=== PATIENT | female | born 1960 | race African-American/Black ===

== ENCOUNTER 2023-04-11 00:37 | Inpatient (IN) | payer OTHER ==
[2023-04-11] MEDS ORDERED: Ketamine In 0.9 % NaCl 50 MG/5 ML SYRINGE ONE (00:46)
[2023-04-11] MEDS ORDERED: Rocuronium Bromide 10 MG/ML (10ML VIAL) ONE (00:47)
[2023-04-11] MEDS ORDERED: NOREPINEPHRINE 8 MG/250 ML-D5W 250 ML ONE (00:56)
[2023-04-11 01:22] LABS: #Monocytes 2.2 thou/uL (0.11-0.59); #Neutrophils 8.3 thou/uL (1.40-6.50); %Basophils 0.1 % (0.0-1.0); %Lymphocytes 5.7 % (21.0-51.0); %Monocytes 18.6 % (0.0-10.0); %Neutrophils 71.6 % (42.0-75.0); Hematocrit 39.1 % (36.0-47.0); Hemoglobin 11.7 g/dL (12.0-16.0); Mean Corpuscular HGB CONC 29.9 g/dL (32.0-36.0); Mean Corpuscular Hemoglobin 29.1 pg (27.0-31.0); Mean Corpuscular Volume 97.3 fl (78.0-98.0); Red Blood Cell (RBC) Count 4.02 mill/uL (4.20-5.40); White Blood Cell (WBC) Count 11.6 10x3/uL (4.8-10.8)
[2023-04-11 01:27] LABS: ALT (SGPT) 1175 U/L (8-55); AST (SGOT) 2190 U/L (5-34); Albumin 4.3 g/dL (3.4-4.8); Alkaline Phosphatase 85 U/L (40-110); Anion Gap 27 mmol/L (10-20); BUN (Urea Nitrogen) 31 mg/dL (9.8-20.1); Bilirubin, Total 2.6 mg/dL (0.2-1.2); Calc. Creatinine Clearance 0 mL/min (70-130); Carbon Dioxide 13 mmol/L (23-31); Chloride 102 mmol/L (98-107); Estimated GFR 14; Globulin 2.5 g/dL (2.4-3.5); Glucose 64 mg/dL (80-115); Lipase 41 U/L (8-78); Potassium 4.8 mmol/L (3.5-5.1); Protein, Total 6.8 g/dL (5.8-8.1); Sodium 137 mmol/L (136-145)
[2023-04-11] MEDS ORDERED: Cefepime 2 GM VIAL ONE (01:28)
[2023-04-11 01:34] LABS: Troponin I 0.395 ng/mL (< 0.028)
[2023-04-11 01:35] LABS: Analyzer IN Cardio ER; Base Excess (BEa) -16.1 mEq/L (-2.0 to +3.0); CO2 Tension 27.3 mmHg (35.0-45.0); Calcium, Ionized (arterial) 1.11 mmol/L (1.12-1.30); Carboxyhemoglobin (COHb) 0.3 gm% (0.0-3.0); Hematocrit-ABG 38 % (36.0-47.0); Hemoglobin (Hb) 12.8 g/dL (12.0-16.0); O2 Tension (PaO2), arterial 476.7 mmHg (> 80.0); Potassium - ABG Lab 4.52 mmol/L (3.70-5.30)
[2023-04-11] MEDS ORDERED: LevoFLOXacin 750 mg/D5W 150 ml Premix Bag ONE (01:42)
[2023-04-11 01:43] LABS: Bilirubin Negative (Negative); Blood, Urine 3+ (Negative); CAUTI Indications for Culture Dysuria,urgency,freq; Clarity Turbid (Clear); Glucose, Urine (Dipstick) Greater than 1000 mg/dL (Negative); Ketone, Urine Negative (Negative); Leukocyte Negative Leu/uL (Negative); Nitrite Negative (Negative); Protein, Urine (Dipstick) 50 mg/dL (Neg-Trace); RBC/HPF 0-3 HPF (0-3); Specific Gravity, Urine 1.016 (1.002-1.036); Squamous Epithelial 0-3 HPF (0-3); Urobilinogen Normal mg/dL (Less than 2)
[2023-04-11] MEDS ORDERED: Vancomycin 1 GM/200 ML (FROZEN) BAG ONE (01:43)
[2023-04-11 01:48] LABS: Bacteria/HPF Rare-Few HPF (None Seen); Urine Culture Reflex Yes Yes
[2023-04-11 02:06] LABS: Anisocytosis SLIGHT = 6-15 cells HPF (0-5); Burr Cells SLIGHT = 2-5 cells HPF (0-1); CellaVision Operator ID lab.abc; Macrocytosis MODERATE=16-30 cells HPF (0-5); Platelet Adequacy Comment Platelets Decreased; Poikilocytosis SLIGHT = 6-15 cells HPF (0-5); Polychromasia SLIGHT = 2-3 cells HPF (0-2)
[2023-04-11 02:07] LABS: Platelet Count 80 10x3/uL (130-400)
[2023-04-11] MEDS ORDERED: Fentanyl CADD 100 ML IV SCH ×2 (02:15→03:30)
[2023-04-11] MEDS ORDERED: Ipratropium/Albuterol 3 ML NEB NEB PRN (02:52)
[2023-04-11] MEDS ORDERED: Acetaminophen 650 MG Suppository PR PRN (02:52)
[2023-04-11] MEDS ORDERED: Sodium Bicarb 50 MEQ/50 ML Abboject 8.4% SYRINGE ONE ×2 (02:58)
[2023-04-11] MEDS ORDERED: Ventilator Sedation Protocol 1 EACH FS SCH (03:00)
[2023-04-11] MEDS ORDERED: Dextrose 50% Abboject 50 ML SYRINGE SLOW IVP PRN (03:25)
[2023-04-11] MEDS ORDERED: Dextrose 5% in Water 1,000 ML IV PRN (03:25)
[2023-04-11] MEDS ORDERED: Glucagon 1 MG/ML KIT IM PRN (03:25)
[2023-04-11] MEDS ORDERED: HumaLOG 300 UNITS/3 ML VIAL SC PRN (03:25)
[2023-04-11] MEDS ORDERED: Propofol BOLUS 1,000 MG/100 ML VIAL IV PRN (03:30)
[2023-04-11] MEDS ORDERED: DISCONTINUE PREVIOUS NARCOTIC PAIN MEDICATIONS AND BENZODIAZEPINES FS SCH (03:30)
[2023-04-11] MEDS ORDERED: Propofol 1,000 MG/100 ML VIAL IV PRN (03:30)
[2023-04-11] MEDS ORDERED: Morphine 2 MG/ML VIAL SLOW IVP PRN (03:30)
[2023-04-11] MEDS ORDERED: Fentanyl BOLUS 250 ML IVPB PRN (03:30)
[2023-04-11] MEDS ORDERED: Sodium Bicarbonate 150 MEQ in Dextrose 5% in Water 1,000 ML IV SCH (03:30)
[2023-04-11 03:45] LABS: Actual Bicarbonate (HCO3a) 10.4 mEq/L (22-28)
[2023-04-11 04:00] LABS: SARS-CoV-2 NAA Rapid Test Not Detected (NotDetected)
[2023-04-11 04:24] LABS: Lactic Acid 10.5 mmol/L (0.5-2.2)
[2023-04-11] MEDS ORDERED: Vancomycin HCl 750 MG in Sodium Chloride 0.9% 250 ML 250 ML IVPB SCH (04:30)
[2023-04-11] MEDS ORDERED: Vancomycin Dose by Levels Sliding Scale (Wt 71-99) FS SCH (04:45)
[2023-04-11 04:59] LABS: Base Excess (BEa) -13.2 mEq/L (-2.0 to +3.0); CO2 Tension 41.9 mmHg (35.0-45.0); Calcium, Ionized (arterial) 1.04 mmol/L (1.12-1.30); Carboxyhemoglobin (COHb) 0.6 gm% (0.0-3.0); Hematocrit-ABG 38 % (36.0-47.0); Hemoglobin (Hb) 12.9 g/dL (12.0-16.0); Potassium - ABG Lab 3.99 mmol/L (3.70-5.30)
[2023-04-11] MEDS ORDERED: Sodium Bicarb 50 MEQ/50 ML Abboject 8.4% SYRINGE IVP SCH (05:15)
[2023-04-11 05:39] LABS: PTT 61.7 sec (22.9-36.1); Prothrombin Time 103.8 sec (12.0-14.7)
[2023-04-11 05:40] LABS: INR-International Normal Ratio 12.9
[2023-04-11 06:03] LABS: ALT (SGPT) 1389 U/L (8-55); AST (SGOT) 2374 U/L (5-34); Albumin 3.7 g/dL (3.4-4.8); Alkaline Phosphatase 78 U/L (40-110); Anion Gap 30 mmol/L (10-20); BUN (Urea Nitrogen) 31 mg/dL (9.8-20.1); Bilirubin, Total 2.8 mg/dL (0.2-1.2); Calc. Creatinine Clearance 24 mL/min (70-130); Calcium 7.9 mg/dL (7.8-10.44); Carbon Dioxide 17 mmol/L (23-31); Chloride 102 mmol/L (98-107); Estimated GFR 15; Globulin 2.3 g/dL (2.4-3.5); Glucose 151 mg/dL (80-115); Potassium 4.3 mmol/L (3.5-5.1); Sodium 145 mmol/L (136-145)
[2023-04-11 06:04] LABS: Delete Auto Diff?? YES; Manual Diff?? YES; Mean Corpuscular Hemoglobin 29.3 pg (27.0-31.0); Mean Corpuscular Volume 97.6 fl (78.0-98.0); Platelet Count 80 10x3/uL (130-400); RBC Distribution Width 19.9 % (11.5-14.5)
[2023-04-11 06:25] LABS: Anisocytosis SLIGHT = 6-15 cells HPF (0-5); Band 6 % (5-11); Burr Cells MODERATE= 6-15 cells HPF (0-1); CellaVision Operator ID lab.abc; Lymphocytes 5 % (21-51); Macrocytosis SLIGHT = 6-15 cells HPF (0-5); Monocytes 16 % (0-10); Neutrophil 73 % (42-75); Nucleated RBC (Manual Ct) 3 % (0); Platelet Adequacy Comment Platelets Decreased; Poikilocytosis MODERATE=16-30 cells HPF (0-5); Polychromasia SLIGHT = 2-3 cells HPF (0-2); Smudge Cells 5.9 %; Total Cell Count 119
[2023-04-11] MEDS ORDERED: HUMAN PROTHROMBIN COMPLX IV SCH (06:30)
[2023-04-11] MEDS ORDERED: ADMIXTURE FEE IV SCH (06:30)
[2023-04-11] MEDS ORDERED: Phytonadione 10 MG in Sodium Chloride 0.9% 50 ML IVPB SCH (07:00)
[2023-04-11 07:33] LABS: Actual Bicarbonate (HCO3a) 18.9 mEq/L (22-28); Base Excess (BEa) -6.8 mEq/L (-2.0 to +3.0); CO2 Tension 38.4 mmHg (35.0-45.0); Calcium, Ionized (arterial) 0.98 mmol/L (1.12-1.30); Carboxyhemoglobin (COHb) 0.7 gm% (0.0-3.0); Hematocrit-ABG 37 % (36.0-47.0); Hemoglobin (Hb) 12.7 g/dL (12.0-16.0); O2 Tension (PaO2), arterial 503.3 mmHg (> 80.0); Potassium - ABG Lab 4.16 mmol/L (3.70-5.30); pH, Arterial 7.309 (7.35-7.45)
[2023-04-11 07:35] LABS: Puncture Site Arterial Line
[2023-04-11] MEDS ORDERED: Vancomycin (BATCH) 1.5 GM in Premix 1 BAG IVPB SCH (09:00)
[2023-04-11] MEDS ORDERED: Octreotide Acetate 1,250 MCG in Sodium Chloride 0.9% 250 ML 250 ML IVPB SCH (09:15)
[2023-04-11] MEDS: Famotidine/PF 20 mg/2ml Vial SLOW IVP SCH (10:05)
[2023-04-11] MEDS: NOREPINEPHRINE 8 MG/250 ML-D5W 250 ML IVPB PRN (12:04)
[2023-04-11] MEDS: HumaLOG 300 UNITS/3 ML VIAL SC PRN ×3 (13:04→21:32)
[2023-04-11 13:33] LABS: Hematocrit 36.8 % (36.0-47.0); Hemoglobin 11.5 g/dL (12.0-16.0); Mean Corpuscular HGB CONC 31.3 g/dL (32.0-36.0); Mean Corpuscular Hemoglobin 30.4 pg (27.0-31.0); Mean Corpuscular Volume 97.4 fl (78.0-98.0); Red Blood Cell (RBC) Count 3.78 mill/uL (4.20-5.40); White Blood Cell (WBC) Count 17.3 10x3/uL (4.8-10.8)
[2023-04-11 13:34] LABS: Mean Platelet Volume 11.2 fL (7.4-10.4); RBC Distribution Width 20.1 % (11.5-14.5)
[2023-04-11 13:35] LABS: Platelet Count 86 10x3/uL (130-400)
[2023-04-11] MEDS ORDERED: Cefepime 1 GM in Sodium Chloride 0.9% 100 ML IVPB SCH (14:00)
[2023-04-11] MEDS: Sodium Bicarbonate 150 MEQ in Dextrose 5% in Water 1,000 ML IV SCH (19:29)
[2023-04-11] MEDS ORDERED: methylPREDNISolone Sod Succ 40 MG VIAL IVP SCH (21:00)
[2023-04-12] MEDS: Cefepime 1 GM in Sodium Chloride 0.9% 100 ML IVPB SCH (02:06)
[2023-04-12] MEDS: NOREPINEPHRINE 8 MG/250 ML-D5W 250 ML IVPB PRN (02:06)
[2023-04-12 04:54] LABS: %Basophils 0.1 % (0.0-1.0); Hemoglobin 11.3 g/dL (12.0-16.0)
[2023-04-12 05:16] LABS: PTT 53.8 sec (22.9-36.1); Prothrombin Time 88.4 sec (12.0-14.7)
[2023-04-12 05:17] LABS: ALT (SGPT) 2827 U/L (8-55); Albumin 3.6 g/dL (3.4-4.8); Alkaline Phosphatase 100 U/L (40-110); Bilirubin, Direct 2.5 mg/dL (0.1-0.3); Bilirubin, Total 3.9 mg/dL (0.2-1.2)
[2023-04-12 05:18] LABS: ALT (SGPT) 2863 U/L (8-55); Albumin 3.5 g/dL (3.4-4.8); Alkaline Phosphatase 99 U/L (40-110); Anion Gap 23 mmol/L (10-20); BUN (Urea Nitrogen) 43 mg/dL (9.8-20.1); Calc. Creatinine Clearance 19 mL/min (70-130); Calcium 8.7 mg/dL (7.8-10.44); Carbon Dioxide 23 mmol/L (23-31); Chloride 98 mmol/L (98-107); Estimated GFR 11; Globulin 2.4 g/dL (2.4-3.5); Glucose 221 mg/dL (80-115); Protein, Total 5.9 g/dL (5.8-8.1); Sodium 140 mmol/L (136-145)
[2023-04-12 05:21] LABS: AST (SGOT) Greater than 3500 U/L (5-34)
[2023-04-12 05:21] LABS: AST (SGOT) Greater than 3500 U/L (5-34)
[2023-04-12] MEDS: Furosemide 40 MG/4 ML VIAL SLOW IVP SCH ×2 (05:34→15:17)
[2023-04-12] MEDS: HumaLOG 300 UNITS/3 ML VIAL SC PRN ×3 (05:35→16:18)
[2023-04-12 05:38] LABS: HBCM Index 0.07 S/CO (0-0.79); HBSAg Index 0.18 S/CO (0-0.99); Hep A IgM AB Non-Reactive S/CO (NonReactive); Hep B Surf Ag Non-Reactive S/CO (NonReactive); Hep C IgG Ab Non-Reactive S/CO (NonReactive); Hep C Index 0.07 S/CO (0-0.79); Hepatitis B Core IgM Abs Non-Reactive S/CO (NonReactive)
[2023-04-12 05:55] LABS: INR-International Normal Ratio 10.6
[2023-04-12 07:41] LABS: Hep B Core Total Ab Non-Reactive (NonReactive); Hep B Core Total Index 0.06 S/CO (0-0.79)
[2023-04-12 07:42] LABS: HBSAB Concentration Less than 8.00 mIU/mL; Hep B Surf AB Non-Reactive (NonReactive)
[2023-04-12] MEDS ORDERED: Heparin 10,000 UNITS/ 10 ML VIAL ONE (08:16)
[2023-04-12] MEDS: Famotidine/PF 20 mg/2ml Vial SLOW IVP SCH (09:42)
[2023-04-12 12:48] LABS: Hematocrit 36.5 % (36.0-47.0)
[2023-04-12 12:52] LABS: Red Blood Cell (RBC) Count 3.87 mill/uL (4.20-5.40); White Blood Cell (WBC) Count 17.8 10x3/uL (4.8-10.8)
[2023-04-12 12:53] LABS: Mean Corpuscular Hemoglobin 29.2 pg (27.0-31.0); RBC Distribution Width 20.1 % (11.5-14.5)
[2023-04-12 12:54] LABS: %Lymphocytes 3.5 % (21.0-51.0); %Neutrophils 79.3 % (42.0-75.0); Platelet Count 111 10x3/uL (130-400)
[2023-04-12 12:55] LABS: #Monocytes 2.5 thou/uL (0.11-0.59); #Neutrophils 14.1 thou/uL (1.40-6.50); %Monocytes 14.1 % (0.0-10.0)
[2023-04-12 12:56] LABS: Mean Corpuscular Volume 94.3 fl (78.0-98.0)
[2023-04-12] MEDS: Sodium Bicarbonate 150 MEQ in Dextrose 5% in Water 1,000 ML IV SCH (12:56)
[2023-04-12 16:44] LABS: Actual Bicarbonate (HCO3a) 27.2 mEq/L (22-28); Base Excess (BEa) 7.7 mEq/L (-2.0 to +3.0); Calcium, Ionized (arterial) 1.02 mmol/L (1.12-1.30); Carboxyhemoglobin (COHb) 0.4 gm% (0.0-3.0); Hematocrit-ABG 33 % (36.0-47.0); Hemoglobin (Hb) 11.2 g/dL (12.0-16.0); O2 Tension (PaO2), arterial 98.4 mmHg (> 80.0)
[2023-04-12 16:48] LABS: pH, Arterial 7.685 (7.35-7.45)
[2023-04-12 16:49] LABS: ALV-art Gradient 157.675 mmHg (0-20); CO2 Tension 23.3 mmHg (35.0-45.0); Puncture Site ALINE
[2023-04-12] MEDS ORDERED: Insulin Glargine 30 UNITS/0.3 ML VIAL SC SCH (17:00)
[2023-04-13] MEDS: Cefepime 1 GM in Sodium Chloride 0.9% 100 ML IVPB SCH (02:46)
[2023-04-13 04:27] LABS: INR-International Normal Ratio 4.5; PTT 40.5 sec (22.9-36.1); Prothrombin Time 44.9 sec (12.0-14.7)
[2023-04-13 04:50] LABS: ALT (SGPT) 1994 U/L (8-55); AST (SGOT) 1847 U/L (5-34); Albumin 3.2 g/dL (3.4-4.8); Alkaline Phosphatase 94 U/L (40-110); Anion Gap 20 mmol/L (10-20); BUN (Urea Nitrogen) 42 mg/dL (9.8-20.1); Bilirubin, Total 5.2 mg/dL (0.2-1.2); Calc. Creatinine Clearance 23 mL/min (70-130); Calcium 8.5 mg/dL (7.8-10.44); Carbon Dioxide 26 mmol/L (23-31); Chloride 101 mmol/L (98-107); Estimated GFR 14; Globulin 2.4 g/dL (2.4-3.5); Glucose 149 mg/dL (80-115); Potassium 2.7 mmol/L (3.5-5.1); Protein, Total 5.6 g/dL (5.8-8.1); Sodium 144 mmol/L (136-145)
[2023-04-13 04:52] LABS: Hematocrit 30.8 % (36.0-47.0); Hemoglobin 10.2 g/dL (12.0-16.0); Mean Corpuscular HGB CONC 33.1 g/dL (32.0-36.0); RBC Distribution Width 19.6 % (11.5-14.5); Red Blood Cell (RBC) Count 3.52 mill/uL (4.20-5.40); White Blood Cell (WBC) Count 9.8 10x3/uL (4.8-10.8)
[2023-04-13 04:55] LABS: Manual Diff?? YES; Platelet Count 85 10x3/uL (130-400)
[2023-04-13 04:56] LABS: Delete Auto Diff?? YES
[2023-04-13] MEDS: Furosemide 40 MG/4 ML VIAL SLOW IVP SCH (05:06)
[2023-04-13] MEDS: HumaLOG 300 UNITS/3 ML VIAL SC PRN ×2 (05:06→22:05)
[2023-04-13 05:22] LABS: Anisocytosis SLIGHT = 6-15 cells HPF (0-5); Band 1 % (5-11); Burr Cells SLIGHT = 2-5 cells HPF (0-1); CellaVision Operator ID lab.abc; Eosinophils 1 % (0-10); Hypochromia SLIGHT = 6-15 cells HPF (0-5); Large Platelets 3.9 % (0-5); Lymphocytes 5 % (21-51); Monocytes 11 % (0-10); Neutrophil 82 % (42-75); Platelet Adequacy Comment Platelets Decreased; Poikilocytosis MODERATE=16-30 cells HPF (0-5); Smudge Cells 18.6 %; Total Cell Count 102
[2023-04-13 05:59] LABS: Mean Corpuscular Volume 87.5 fl (78.0-98.0)
[2023-04-13] MEDS: Famotidine/PF 20 mg/2ml Vial SLOW IVP SCH (10:14)
[2023-04-13] MEDS: Insulin Glargine 30 UNITS/0.3 ML VIAL SC SCH ×2 (10:14→10:41)
[2023-04-13] MEDS: Potassium Chloride 20 MEQ in Premix 1 BAG IVPB SCH ×2 (10:17→11:31)
[2023-04-13] MEDS ORDERED: Dexmedetomidine 400 MCG, Admixture Fee 1 EACH in Sodium Chloride 0.9% 96 ML IVPB SCH (11:00)
[2023-04-13] MEDS ORDERED: Heparin 10,000 UNITS/ 10 ML VIAL ONE (12:48)
[2023-04-13] MEDS: Lorazepam 2 MG/ML VIAL SLOW IVP PRN ×2 (14:09→18:12)
[2023-04-13] MEDS ORDERED: Diazepam 10 MG/2 ML SYRINGE IVP PRN (17:40)
[2023-04-14] MEDS: Cefepime 1 GM in Sodium Chloride 0.9% 100 ML IVPB SCH (02:53)
[2023-04-14 05:01] LABS: PTT 36.1 sec (22.9-36.1); Prothrombin Time 23.6 sec (12.0-14.7)
[2023-04-14 05:04] LABS: ALT (SGPT) 1444 U/L (8-55); AST (SGOT) 889 U/L (5-34); Albumin 3.4 g/dL (3.4-4.8); Alkaline Phosphatase 102 U/L (40-110); Anion Gap 20 mmol/L (10-20); BUN (Urea Nitrogen) 34 mg/dL (9.8-20.1); Bilirubin, Direct 4.5 mg/dL (0.1-0.3); Bilirubin, Total 6.7 mg/dL (0.2-1.2); Calc. Creatinine Clearance 29 mL/min (70-130); Calcium 8.6 mg/dL (7.8-10.44); Carbon Dioxide 22 mmol/L (23-31); Chloride 101 mmol/L (98-107); Estimated GFR 19; Globulin 2.4 g/dL (2.4-3.5); Glucose 197 mg/dL (80-115); Potassium 3.2 mmol/L (3.5-5.1); Protein, Total 5.8 g/dL (5.8-8.1); Sodium 140 mmol/L (136-145)
[2023-04-14] MEDS: HumaLOG 300 UNITS/3 ML VIAL SC PRN ×4 (06:00→21:34)
[2023-04-14 06:28] LABS: #Monocytes 1.4 thou/uL (0.11-0.59); #Neutrophils 7.8 thou/uL (1.40-6.50); %Basophils 0.1 % (0.0-1.0); %Eosinophils 0.1 % (0.0-10.0); %Lymphocytes 5.5 % (21.0-51.0); %Monocytes 13.9 % (0.0-10.0); %Neutrophils 77.9 % (42.0-75.0); Hematocrit 30.6 % (36.0-47.0); Hemoglobin 9.9 g/dL (12.0-16.0); Mean Corpuscular HGB CONC 32.4 g/dL (32.0-36.0); Mean Corpuscular Hemoglobin 28.9 pg (27.0-31.0); Mean Corpuscular Volume 89.5 fl (78.0-98.0); RBC Distribution Width 20.3 % (11.5-14.5); Red Blood Cell (RBC) Count 3.42 mill/uL (4.20-5.40)
[2023-04-14 06:48] LABS: Platelet Count 72 10x3/uL (130-400)
[2023-04-14 08:10] LABS: Actual Bicarbonate (HCO3a) 26.7 mEq/L (22-28); Base Excess (BEa) 6.9 mEq/L (-2.0 to +3.0); Calcium, Ionized (arterial) 1.05 mmol/L (1.12-1.30); Carboxyhemoglobin (COHb) 0.4 gm% (0.0-3.0); Hematocrit-ABG 31 % (36.0-47.0); Hemoglobin (Hb) 10.7 g/dL (12.0-16.0); Potassium - ABG Lab 2.82 mmol/L (3.70-5.30)
[2023-04-14] MEDS: Insulin Glargine 30 UNITS/0.3 ML VIAL SC SCH (08:35)
[2023-04-14] MEDS: Famotidine/PF 20 mg/2ml Vial SLOW IVP SCH (08:35)
[2023-04-14] MEDS ORDERED: Heparin 10,000 UNITS/ 10 ML VIAL ONE (08:42)
[2023-04-14 10:53] LABS: CO2 Tension 23.6 mmHg (35.0-45.0); Puncture Site Arterial Line; pH, Arterial 7.671 (7.35-7.45)
[2023-04-15] MEDS: Cefepime 1 GM in Sodium Chloride 0.9% 100 ML IVPB SCH (02:42)
[2023-04-15 04:03] LABS: INR-International Normal Ratio 1.6; PTT 37.8 sec (22.9-36.1); Prothrombin Time 19.2 sec (12.0-14.7)
[2023-04-15 04:09] LABS: #Monocytes 2.2 thou/uL (0.11-0.59); #Neutrophils 10.1 thou/uL (1.40-6.50); %Basophils 0.2 % (0.0-1.0); %Eosinophils 0.2 % (0.0-10.0); %Lymphocytes 4.4 % (21.0-51.0); %Monocytes 16.6 % (0.0-10.0); %Neutrophils 76.8 % (42.0-75.0); Hematocrit 32.7 % (36.0-47.0); Hemoglobin 10.3 g/dL (12.0-16.0); Mean Corpuscular HGB CONC 31.5 g/dL (32.0-36.0); Mean Corpuscular Hemoglobin 28.8 pg (27.0-31.0); Mean Corpuscular Volume 91.3 fl (78.0-98.0); Platelet Count 93 10x3/uL (130-400); RBC Distribution Width 20.9 % (11.5-14.5); Red Blood Cell (RBC) Count 3.58 mill/uL (4.20-5.40); White Blood Cell (WBC) Count 13.1 10x3/uL (4.8-10.8)
[2023-04-15 04:14] LABS: ALT (SGPT) 1025 U/L (8-55); AST (SGOT) 395 U/L (5-34); Albumin 3.5 g/dL (3.4-4.8); Alkaline Phosphatase 115 U/L (40-110); Bilirubin, Direct 5.4 mg/dL (0.1-0.3); Protein, Total 6.2 g/dL (5.8-8.1)
[2023-04-15 04:15] LABS: ALT (SGPT) 1026 U/L (8-55); AST (SGOT) 400 U/L (5-34); Albumin 3.7 g/dL (3.4-4.8); Alkaline Phosphatase 115 U/L (40-110); Anion Gap 16 mmol/L (10-20); BUN (Urea Nitrogen) 26 mg/dL (9.8-20.1); Bilirubin, Total 7.1 mg/dL (0.2-1.2); Calc. Creatinine Clearance 40 mL/min (70-130); Calcium 8.9 mg/dL (7.8-10.44); Carbon Dioxide 27 mmol/L (23-31); Chloride 100 mmol/L (98-107); Estimated GFR 30; Globulin 2.5 g/dL (2.4-3.5); Glucose 245 mg/dL (80-115); Potassium 3.1 mmol/L (3.5-5.1); Protein, Total 6.2 g/dL (5.8-8.1); Sodium 140 mmol/L (136-145)
[2023-04-15] MEDS: HumaLOG 300 UNITS/3 ML VIAL SC PRN ×3 (06:21→16:38)
[2023-04-15 06:39] LABS: Actual Bicarbonate (HCO3a) 27.3 mEq/L (22-28); Base Excess (BEa) 3.1 mEq/L (-2.0 to +3.0); CO2 Tension 40.3 mmHg (35.0-45.0); Calcium, Ionized (arterial) 1.13 mmol/L (1.12-1.30); Carboxyhemoglobin (COHb) 0.6 gm% (0.0-3.0); Hematocrit-ABG 33 % (36.0-47.0); Hemoglobin (Hb) 11.3 g/dL (12.0-16.0); Potassium - ABG Lab 3.12 mmol/L (3.70-5.30); pH, Arterial 7.449 (7.35-7.45)
[2023-04-15 06:40] LABS: Puncture Site Right Radial
[2023-04-15 06:41] LABS: ALV-art Gradient 83.825 mmHg (0-20)
[2023-04-15] MEDS ORDERED: Potassium Chloride 20 MEQ in Premix 1 BAG IVPB SCH (06:45)
[2023-04-15] MEDS: Famotidine/PF 20 mg/2ml Vial SLOW IVP SCH (07:46)
[2023-04-15] MEDS: Insulin Glargine 30 UNITS/0.3 ML VIAL SC SCH (07:46)
[2023-04-15] MEDS: Furosemide 40 MG/4 ML VIAL SLOW IVP SCH (14:02)
[2023-04-15] MEDS: Lorazepam 2 MG/ML VIAL SLOW IVP PRN (22:56)
[2023-04-15] MEDS: Insulin NPH Human Isophane 100 UNITS/ML (10 ML VIAL) SC SCH (22:59)
[2023-04-16] MEDS: Cefepime 1 GM in Sodium Chloride 0.9% 100 ML IVPB SCH (01:20)
[2023-04-16 04:30] LABS: ALT (SGPT) 664 U/L (8-55); AST (SGOT) 182 U/L (5-34); Albumin 3.6 g/dL (3.4-4.8); Alkaline Phosphatase 124 U/L (40-110); Anion Gap 12 mmol/L (10-20); BUN (Urea Nitrogen) 35 mg/dL (9.8-20.1); Bilirubin, Total 6.2 mg/dL (0.2-1.2); Calc. Creatinine Clearance 35 mL/min (70-130); Calcium 9.1 mg/dL (7.8-10.44); Carbon Dioxide 29 mmol/L (23-31); Chloride 103 mmol/L (98-107); Estimated GFR 27; Globulin 2.6 g/dL (2.4-3.5); Glucose 213 mg/dL (80-115); Potassium 3.3 mmol/L (3.5-5.1); Protein, Total 6.2 g/dL (5.8-8.1); Sodium 141 mmol/L (136-145)
[2023-04-16 04:45] LABS: #Monocytes 2.4 thou/uL (0.11-0.59); #Neutrophils 11.3 thou/uL (1.40-6.50); %Basophils 0.2 % (0.0-1.0); %Eosinophils 0.1 % (0.0-10.0); %Lymphocytes 4.7 % (21.0-51.0); %Neutrophils 75.4 % (42.0-75.0); Hematocrit 33.3 % (36.0-47.0); Hemoglobin 10.3 g/dL (12.0-16.0); Mean Corpuscular HGB CONC 30.9 g/dL (32.0-36.0); Mean Corpuscular Hemoglobin 28.6 pg (27.0-31.0); Mean Corpuscular Volume 92.5 fl (78.0-98.0); RBC Distribution Width 21.2 % (11.5-14.5)
[2023-04-16 04:46] LABS: Platelet Count 98 10x3/uL (130-400)
[2023-04-16] MEDS: Furosemide 40 MG/4 ML VIAL SLOW IVP SCH ×2 (05:24→15:05)
[2023-04-16] MEDS: HumaLOG 300 UNITS/3 ML VIAL SC PRN (05:25)
[2023-04-16] MEDS ORDERED: Potassium Chloride 20 MEQ in Premix 1 BAG IVPB SCH (05:30)
[2023-04-16] MEDS: Famotidine/PF 20 mg/2ml Vial SLOW IVP SCH (07:47)
[2023-04-16] MEDS: Insulin NPH Human Isophane 100 UNITS/ML (10 ML VIAL) SC SCH ×3 (07:51→20:24)
[2023-04-16] MEDS: DOBUTamine 500 mg/250 ml 250 ML IVPB SCH (09:30)
[2023-04-16 09:44] LABS: Actual Bicarbonate (HCO3a) 26.7 mEq/L (22-28); Base Excess (BEa) 2.5 mEq/L (-2.0 to +3.0); CO2 Tension 39.9 mmHg (35.0-45.0); Calcium, Ionized (arterial) 1.16 mmol/L (1.12-1.30); Carboxyhemoglobin (COHb) 0.8 gm% (0.0-3.0); Hematocrit-ABG 34 % (36.0-47.0); Hemoglobin (Hb) 11.6 g/dL (12.0-16.0); O2 Tension (PaO2), arterial 71.3 mmHg (> 80.0); Potassium - ABG Lab 3.42 mmol/L (3.70-5.30); pH, Arterial 7.444 (7.35-7.45)
[2023-04-16 09:46] LABS: Puncture Site Right Radial
[2023-04-16 09:47] LABS: ALV-art Gradient 164.025 mmHg (0-20)
[2023-04-16] MEDS: Albumin 25% 25 GM/100 ML BOT IVPB SCH ×2 (10:56→17:23)
[2023-04-17] MEDS: Albumin 25% 25 GM/100 ML BOT IVPB SCH ×2 (00:20→05:26)
[2023-04-17] MEDS: Cefepime 1 GM in Sodium Chloride 0.9% 100 ML IVPB SCH (02:07)
[2023-04-17] MEDS: Furosemide 40 MG/4 ML VIAL SLOW IVP SCH ×2 (05:26→14:06)
[2023-04-17 05:48] LABS: ALT (SGPT) 415 U/L (8-55); AST (SGOT) 95 U/L (5-34); Albumin 4.2 g/dL (3.4-4.8); Alkaline Phosphatase 112 U/L (40-110); Anion Gap 18 mmol/L (10-20); BUN (Urea Nitrogen) 36 mg/dL (9.8-20.1); Bilirubin, Total 7.6 mg/dL (0.2-1.2); Calc. Creatinine Clearance 37 mL/min (70-130); Calcium 9.2 mg/dL (7.8-10.44); Carbon Dioxide 25 mmol/L (23-31); Chloride 106 mmol/L (98-107); Estimated GFR 29; Globulin 2.5 g/dL (2.4-3.5); Glucose 148 mg/dL (80-115); Potassium 3.2 mmol/L (3.5-5.1); Protein, Total 6.7 g/dL (5.8-8.1); Sodium 146 mmol/L (136-145)
[2023-04-17 05:50] LABS: #Monocytes 2.6 thou/uL (0.11-0.59); #Neutrophils 10.9 thou/uL (1.40-6.50); %Basophils 0.3 % (0.0-1.0); %Eosinophils 0.2 % (0.0-10.0); %Lymphocytes 4.7 % (21.0-51.0); %Monocytes 17.6 % (0.0-10.0); %Neutrophils 73.4 % (42.0-75.0); Hematocrit 30.6 % (36.0-47.0); Hemoglobin 9.4 g/dL (12.0-16.0); Mean Corpuscular HGB CONC 30.7 g/dL (32.0-36.0); Mean Corpuscular Hemoglobin 28.6 pg (27.0-31.0); Platelet Count 94 10x3/uL (130-400); RBC Distribution Width 21.4 % (11.5-14.5); Red Blood Cell (RBC) Count 3.29 mill/uL (4.20-5.40); White Blood Cell (WBC) Count 14.9 10x3/uL (4.8-10.8)
[2023-04-17 06:40] LABS: Actual Bicarbonate (HCO3a) 26.2 mEq/L (22-28); Base Excess (BEa) 1.9 mEq/L (-2.0 to +3.0); CO2 Tension 39.8 mmHg (35.0-45.0); Calcium, Ionized (arterial) 1.15 mmol/L (1.12-1.30); Hematocrit-ABG 31 % (36.0-47.0); Hemoglobin (Hb) 10.7 g/dL (12.0-16.0); O2 Tension (PaO2), arterial 98.1 mmHg (> 80.0); Potassium - ABG Lab 3.09 mmol/L (3.70-5.30); pH, Arterial 7.436 (7.35-7.45)
[2023-04-17 06:41] LABS: Puncture Site Right Radial
[2023-04-17] MEDS: Famotidine/PF 20 mg/2ml Vial SLOW IVP SCH (08:29)
[2023-04-17] MEDS: Insulin NPH Human Isophane 100 UNITS/ML (10 ML VIAL) SC SCH ×2 (08:30→20:30)
[2023-04-17] MEDS ORDERED: Potassium Chloride 20 MEQ in Premix 1 BAG IVPB SCH (09:00)
[2023-04-17] MEDS ORDERED: Dextrose 5% in Water 1,000 ML IV PRN (11:01)
[2023-04-17] MEDS: Dextrose 5% in Water 1,000 ML IV SCH ×2 (12:09→21:15)
[2023-04-18] MEDS: Cefepime 1 GM in Sodium Chloride 0.9% 100 ML IVPB SCH (02:23)
[2023-04-18 04:50] LABS: ALT (SGPT) 309 U/L (8-55); AST (SGOT) 60 U/L (5-34); Alkaline Phosphatase 100 U/L (40-110); Anion Gap 15 mmol/L (10-20); BUN (Urea Nitrogen) 32 mg/dL (9.8-20.1); Bilirubin, Total 7.7 mg/dL (0.2-1.2); Calc. Creatinine Clearance 42 mL/min (70-130); Calcium 8.9 mg/dL (7.8-10.44); Carbon Dioxide 27 mmol/L (23-31); Chloride 104 mmol/L (98-107); Estimated GFR 34; Globulin 2.6 g/dL (2.4-3.5); Glucose 118 mg/dL (80-115); Potassium 2.9 mmol/L (3.5-5.1); Protein, Total 6.6 g/dL (5.8-8.1); Sodium 143 mmol/L (136-145)
[2023-04-18 05:06] LABS: #Monocytes 1.9 thou/uL (0.11-0.59); #Neutrophils 8.7 thou/uL (1.40-6.50); %Basophils 0.2 % (0.0-1.0); %Eosinophils 0.2 % (0.0-10.0); %Monocytes 15.3 % (0.0-10.0); %Neutrophils 72.3 % (42.0-75.0); Mean Corpuscular HGB CONC 31.3 g/dL (32.0-36.0); Mean Corpuscular Hemoglobin 28.7 pg (27.0-31.0); RBC Distribution Width 21.8 % (11.5-14.5); Red Blood Cell (RBC) Count 3.48 mill/uL (4.20-5.40); White Blood Cell (WBC) Count 12.1 10x3/uL (4.8-10.8)
[2023-04-18 05:08] LABS: Platelet Count 87 10x3/uL (130-400)
[2023-04-18] MEDS: DOBUTamine 500 mg/250 ml 250 ML IVPB SCH (05:08)
[2023-04-18] MEDS: Furosemide 40 MG/4 ML VIAL SLOW IVP SCH ×2 (05:08→13:19)
[2023-04-18] MEDS ORDERED: Potassium Chloride 40 MEQ in Premix 1 BAG IVPB SCH (05:30)
[2023-04-18] MEDS: Famotidine/PF 20 mg/2ml Vial SLOW IVP SCH (08:03)
[2023-04-18] MEDS: Dextrose 5% in Water 1,000 ML IV SCH ×2 (08:08→21:00)
[2023-04-18] MEDS: Insulin NPH Human Isophane 100 UNITS/ML (10 ML VIAL) SC SCH ×2 (08:26→20:57)
[2023-04-18] MEDS ORDERED: Insulin NPH Human Isophane 100 UNITS/ML (10 ML VIAL) SC SCH (08:45)
[2023-04-18 10:55] LABS: Magnesium 2.1 mg/dL (1.6-2.6)
[2023-04-18 13:03] LABS: Potassium 3.8 mmol/L (3.5-5.1)
[2023-04-18] MEDS: HumaLOG 300 UNITS/3 ML VIAL SC PRN (17:06)
[2023-04-18] MEDS: Heparin 5,000 UNITS/ML VIAL SC SCH (20:57)
[2023-04-19 04:43] LABS: Hemoglobin 11.5 g/dL (12.0-16.0); Mean Corpuscular HGB CONC 31.1 g/dL (32.0-36.0); Mean Corpuscular Hemoglobin 28.5 pg (27.0-31.0); Mean Corpuscular Volume 91.6 fl (78.0-98.0); Platelet Count 104 10x3/uL (130-400); RBC Distribution Width 22.3 % (11.5-14.5); Red Blood Cell (RBC) Count 4.04 mill/uL (4.20-5.40); White Blood Cell (WBC) Count 13.3 10x3/uL (4.8-10.8)
[2023-04-19 04:45] LABS: Delete Auto Diff?? YES; Manual Diff?? YES
[2023-04-19 04:47] LABS: ALT (SGPT) 261 U/L (8-55); AST (SGOT) 53 U/L (5-34); Alkaline Phosphatase 106 U/L (40-110); Anion Gap 18 mmol/L (10-20); BUN (Urea Nitrogen) 27 mg/dL (9.8-20.1); Bilirubin, Total 7.2 mg/dL (0.2-1.2); Calc. Creatinine Clearance 52 mL/min (70-130); Carbon Dioxide 23 mmol/L (23-31); Chloride 100 mmol/L (98-107); Estimated GFR 43; Glucose 168 mg/dL (80-115); Potassium 4.4 mmol/L (3.5-5.1); Sodium 137 mmol/L (136-145)
[2023-04-19 05:10] LABS: Anisocytosis MODERATE=16-30 cells HPF (0-5); Burr Cells MODERATE= 6-15 cells HPF (0-1); CellaVision Operator ID lab.sh2; Eosinophils 2 % (0-10); Hypochromia SLIGHT = 6-15 cells HPF (0-5); Lymphocytes 8 % (21-51); Macrocytosis MODERATE=16-30 cells HPF (0-5); Monocytes 14 % (0-10); Neutrophil 76 % (42-75); Ovalocytes SLIGHT = 2-5 cells HPF (0-1); Platelet Adequacy Comment Platelets Decreased; Poikilocytosis SLIGHT = 6-15 cells HPF (0-5); Polychromasia SLIGHT = 2-3 cells HPF (0-2); Smudge Cells 22.2 %; Total Cell Count 99
[2023-04-19] MEDS: Furosemide 40 MG/4 ML VIAL SLOW IVP SCH ×2 (06:22→16:00)
[2023-04-19] MEDS: Heparin 5,000 UNITS/ML VIAL SC SCH ×3 (09:33→22:05)
[2023-04-19] MEDS: Famotidine/PF 20 mg/2ml Vial SLOW IVP SCH (09:34)
[2023-04-19] MEDS: HumaLOG 300 UNITS/3 ML VIAL SC PRN (09:34)
[2023-04-19] MEDS: Dextrose 5% in Water 1,000 ML IV SCH ×2 (10:15→20:12)
[2023-04-19] MEDS: Insulin NPH Human Isophane 100 UNITS/ML (10 ML VIAL) SC SCH ×2 (10:17→22:06)
[2023-04-19 14:44] LABS: Actual Bicarbonate (HCO3a) 14.8 mEq/L (22-28); O2 Tension (PaO2), arterial 36.8 mmHg (> 80.0); pH, Arterial 7.167 (7.35-7.45)
[2023-04-19] MEDS ORDERED: Cefepime 1 GM in Sodium Chloride 0.9% 100 ML IVPB SCH (21:00)
[2023-04-19] MEDS: cefTRIAXone\\ROCEPHIN 2 GM in Sodium Chloride 0.9% 100 ML IVPB SCH (23:13)
[2023-04-20] MEDS: DOBUTamine 500 mg/250 ml 250 ML IVPB SCH (02:34)
[2023-04-20 04:49] LABS: ALT (SGPT) 200 U/L (8-55); AST (SGOT) 37 U/L (5-34); Albumin 4.1 g/dL (3.4-4.8); Alkaline Phosphatase 101 U/L (40-110); Anion Gap 14 mmol/L (10-20); BUN (Urea Nitrogen) 23 mg/dL (9.8-20.1); Bilirubin, Total 5.9 mg/dL (0.2-1.2); Calc. Creatinine Clearance 58 mL/min (70-130); Calcium 9.3 mg/dL (7.8-10.44); Carbon Dioxide 24 mmol/L (23-31); Chloride 96 mmol/L (98-107); Estimated GFR 46; Globulin 2.6 g/dL (2.4-3.5); Glucose 212 mg/dL (80-115); Potassium 3.1 mmol/L (3.5-5.1); Protein, Total 6.7 g/dL (5.8-8.1); Sodium 131 mmol/L (136-145)
[2023-04-20 05:02] LABS: Hematocrit 34.8 % (36.0-47.0); Mean Corpuscular HGB CONC 31.6 g/dL (32.0-36.0); Mean Corpuscular Hemoglobin 28.4 pg (27.0-31.0); Mean Corpuscular Volume 89.7 fl (78.0-98.0); Platelet Count 109 10x3/uL (130-400); RBC Distribution Width 22.1 % (11.5-14.5); Red Blood Cell (RBC) Count 3.88 mill/uL (4.20-5.40); White Blood Cell (WBC) Count 11.2 10x3/uL (4.8-10.8)
[2023-04-20 05:06] LABS: Delete Auto Diff?? YES
[2023-04-20 05:29] LABS: CellaVision Operator ID LAB.CLH1; Hypochromia SLIGHT = 6-15 cells HPF (0-5); Platelet Adequacy Comment Platelets Decreased; Poikilocytosis SLIGHT = 6-15 cells HPF (0-5); Polychromasia SLIGHT = 2-3 cells HPF (0-2)
[2023-04-20] MEDS: Dextrose 5% in Water 1,000 ML IV SCH ×2 (06:01→16:47)
[2023-04-20] MEDS: Furosemide 40 MG/4 ML VIAL SLOW IVP SCH ×2 (06:02→14:59)
[2023-04-20] MEDS: Heparin 5,000 UNITS/ML VIAL SC SCH ×3 (09:18→21:38)
[2023-04-20] MEDS: Insulin NPH Human Isophane 100 UNITS/ML (10 ML VIAL) SC SCH ×2 (09:19→21:38)
[2023-04-20] MEDS: Famotidine/PF 20 mg/2ml Vial SLOW IVP SCH (09:19)
[2023-04-20] MEDS: Potassium Chloride 20 MEQ in Premix 1 BAG IVPB SCH ×3 (16:47→19:02)
[2023-04-20] MEDS: HumaLOG 300 UNITS/3 ML VIAL SC PRN (17:14)
[2023-04-20] MEDS: cefTRIAXone\\ROCEPHIN 2 GM in Sodium Chloride 0.9% 100 ML IVPB SCH (21:37)
[2023-04-21 04:31] LABS: Hematocrit 33.8 % (36.0-47.0); Hemoglobin 10.7 g/dL (12.0-16.0); Mean Corpuscular HGB CONC 31.7 g/dL (32.0-36.0); Mean Corpuscular Hemoglobin 28.9 pg (27.0-31.0); Mean Corpuscular Volume 91.4 fl (78.0-98.0); Platelet Count 108 10x3/uL (130-400); RBC Distribution Width 22.6 % (11.5-14.5); White Blood Cell (WBC) Count 10.1 10x3/uL (4.8-10.8)
[2023-04-21 04:32] LABS: Delete Auto Diff?? YES; Manual Diff?? YES
[2023-04-21 05:26] LABS: Anisocytosis SLIGHT = 6-15 cells HPF (0-5); Band 1 % (5-11); Burr Cells SLIGHT = 2-5 cells HPF (0-1); CellaVision Operator ID lab.sh2; Eosinophils 1 % (0-10); Lymphocytes 6 % (21-51); Macrocytosis SLIGHT = 6-15 cells HPF (0-5); Monocytes 8 % (0-10); Neutrophil 84 % (42-75); Ovalocytes SLIGHT = 2-5 cells HPF (0-1); Platelet Adequacy Comment Platelets Decreased; Poikilocytosis SLIGHT = 6-15 cells HPF (0-5); Polychromasia SLIGHT = 2-3 cells HPF (0-2); Smudge Cells 10.9 %; Target Cells SLIGHT = 2-5 cells HPF (0-1); Tear Drops SLIGHT = 2-5 cells HPF (0-1); Total Cell Count 101
[2023-04-21] MEDS: Furosemide 40 MG/4 ML VIAL SLOW IVP SCH ×2 (05:40→13:30)
[2023-04-21 06:46] LABS: Albumin 3.7 g/dL (3.4-4.8)
[2023-04-21 06:47] LABS: Chloride 98 mmol/L (98-107); Potassium 3.1 mmol/L (3.5-5.1); Sodium 134 mmol/L (136-145)
[2023-04-21 06:48] LABS: Glucose 111 mg/dL (80-115)
[2023-04-21 06:49] LABS: Globulin 2.8 g/dL (2.4-3.5); Protein, Total 6.5 g/dL (5.8-8.1)
[2023-04-21 06:50] LABS: Anion Gap 16 mmol/L (10-20); Bilirubin, Total 4.9 mg/dL (0.2-1.2); Carbon Dioxide 23 mmol/L (23-31)
[2023-04-21 06:51] LABS: Alkaline Phosphatase 96 U/L (40-110)
[2023-04-21] MEDS: Dextrose 5% in Water 1,000 ML IV SCH ×4 (06:51→23:32)
[2023-04-21 06:52] LABS: Calc. Creatinine Clearance 63 mL/min (70-130); Estimated GFR 50
[2023-04-21 06:53] LABS: AST (SGOT) 33 U/L (5-34); BUN (Urea Nitrogen) 17 mg/dL (9.8-20.1)
[2023-04-21 06:54] LABS: ALT (SGPT) 161 U/L (8-55)
[2023-04-21] MEDS: Insulin NPH Human Isophane 100 UNITS/ML (10 ML VIAL) SC SCH ×2 (09:39→20:41)
[2023-04-21] MEDS: Heparin 5,000 UNITS/ML VIAL SC SCH ×3 (09:40→20:40)
[2023-04-21] MEDS: Carvedilol 3.125 MG TAB PO SCH ×2 (09:41→17:23)
[2023-04-21] MEDS: Famotidine/PF 20 mg/2ml Vial SLOW IVP SCH (09:41)
[2023-04-21] MEDS: Empagliflozin 10 MG TAB PO SCH (09:41)
[2023-04-21] MEDS: Potassium Chloride 20 MEQ in Premix 1 BAG IVPB SCH ×2 (09:56→13:31)
[2023-04-21] MEDS: cefTRIAXone\\ROCEPHIN 2 GM in Sodium Chloride 0.9% 100 ML IVPB SCH (17:23)
[2023-04-21] MEDS ORDERED: Heparin 5,000 UNITS/ML VIAL SC SCH (20:53)
[2023-04-21] MEDS: Atorvastatin Calcium 40 MG TAB PO SCH (21:22)
[2023-04-22 05:10] LABS: ALT (SGPT) 140 U/L (8-55); AST (SGOT) 36 U/L (5-34); Albumin 3.9 g/dL (3.4-4.8); Alkaline Phosphatase 99 U/L (40-110); Anion Gap 16 mmol/L (10-20); BUN (Urea Nitrogen) 16 mg/dL (9.8-20.1); Bilirubin, Total 4.4 mg/dL (0.2-1.2); Calc. Creatinine Clearance 61 mL/min (70-130); Calcium 9.1 mg/dL (7.8-10.44); Carbon Dioxide 23 mmol/L (23-31); Chloride 98 mmol/L (98-107); Estimated GFR 48; Globulin 3.1 g/dL (2.4-3.5); Glucose 119 mg/dL (80-115); Potassium 6.1 mmol/L (3.5-5.1); Sodium 131 mmol/L (136-145)
[2023-04-22] MEDS ORDERED: Dextrose 50% Abboject 50 ML SYRINGE SLOW IVP PRN (05:38)
[2023-04-22 05:46] LABS: #Monocytes 1.1 thou/uL (0.11-0.59); #Neutrophils 6.9 thou/uL (1.40-6.50); %Basophils 0.2 % (0.0-1.0); %Eosinophils 0.2 % (0.0-10.0); %Lymphocytes 8.9 % (21.0-51.0); %Neutrophils 76.6 % (42.0-75.0); Hematocrit 32.7 % (36.0-47.0); Hemoglobin 10.3 g/dL (12.0-16.0); Mean Corpuscular Hemoglobin 29.2 pg (27.0-31.0); Mean Corpuscular Volume 92.6 fl (78.0-98.0); Platelet Count 118 10x3/uL (130-400); RBC Distribution Width 22.7 % (11.5-14.5); Red Blood Cell (RBC) Count 3.53 mill/uL (4.20-5.40)
[2023-04-22 05:49] LABS: Mean Corpuscular HGB CONC 31.5 g/dL (32.0-36.0)
[2023-04-22] MEDS ORDERED: Insulin Regular 300 UNITS/3 ML VIAL IVP SCH (06:00)
[2023-04-22] MEDS: Furosemide 40 MG/4 ML VIAL SLOW IVP SCH ×2 (06:45→13:13)
[2023-04-22] MEDS: Famotidine/PF 20 mg/2ml Vial SLOW IVP SCH (09:32)
[2023-04-22] MEDS: Apixaban 5 MG TAB PO SCH ×2 (09:32→20:24)
[2023-04-22] MEDS: Aspirin 81 mg Enteric Coated Tablet PO SCH (09:32)
[2023-04-22] MEDS: Carvedilol 3.125 MG TAB PO SCH ×2 (09:32→17:57)
[2023-04-22] MEDS: Insulin NPH Human Isophane 100 UNITS/ML (10 ML VIAL) SC SCH ×2 (09:32→20:25)
[2023-04-22] MEDS: Empagliflozin 10 MG TAB PO SCH (09:32)
[2023-04-22] MEDS: Dextrose 5% in Water 1,000 ML IV SCH (13:07)
[2023-04-22] MEDS: cefTRIAXone\\ROCEPHIN 2 GM in Sodium Chloride 0.9% 100 ML IVPB SCH (17:57)
[2023-04-22] MEDS: HumaLOG 300 UNITS/3 ML VIAL SC PRN (17:58)
[2023-04-22] MEDS: Atorvastatin Calcium 40 MG TAB PO SCH (20:24)
[2023-04-23 04:39] LABS: ALT (SGPT) 115 U/L (8-55); AST (SGOT) 28 U/L (5-34); Albumin 3.8 g/dL (3.4-4.8); Alkaline Phosphatase 99 U/L (40-110); Anion Gap 16 mmol/L (10-20); BUN (Urea Nitrogen) 15 mg/dL (9.8-20.1); Bilirubin, Total 4.1 mg/dL (0.2-1.2); Calc. Creatinine Clearance 62 mL/min (70-130); Calcium 9.2 mg/dL (7.8-10.44); Carbon Dioxide 24 mmol/L (23-31); Chloride 100 mmol/L (98-107); Estimated GFR 50; Globulin 2.8 g/dL (2.4-3.5); Glucose 70 mg/dL (80-115); Potassium 4.1 mmol/L (3.5-5.1); Protein, Total 6.6 g/dL (5.8-8.1); Sodium 136 mmol/L (136-145)
[2023-04-23] MEDS: Furosemide 40 MG/4 ML VIAL SLOW IVP SCH ×2 (06:02→14:12)
[2023-04-23 06:14] LABS: Hematocrit 32.8 % (36.0-47.0); Hemoglobin 10.1 g/dL (12.0-16.0); Mean Corpuscular HGB CONC 30.8 g/dL (32.0-36.0); Mean Corpuscular Hemoglobin 28.9 pg (27.0-31.0); Platelet Count 124 10x3/uL (130-400); RBC Distribution Width 22.6 % (11.5-14.5); Red Blood Cell (RBC) Count 3.49 mill/uL (4.20-5.40); White Blood Cell (WBC) Count 7.6 10x3/uL (4.8-10.8)
[2023-04-23 06:27] LABS: Delete Auto Diff?? YES; Manual Diff?? YES
[2023-04-23 07:17] LABS: Anisocytosis MODERATE=16-30 cells HPF (0-5); Band 1 % (5-11); Blast 1 % (0-0); Burr Cells MODERATE= 6-15 cells HPF (0-1); CellaVision Operator ID LAB.CMB; Large Platelets 1.9 % (0-5); Lymphocytes 10 % (21-51); Macrocytosis MODERATE=16-30 cells HPF (0-5); Monocytes 9 % (0-10); Neutrophil 80 % (42-75); Nucleated RBC (Manual Ct) 1 % (0); Platelet Adequacy Comment Platelets Normal; Poikilocytosis SLIGHT = 6-15 cells HPF (0-5); Polychromasia MODERATE = 3-4 cells HPF (0-2); Total Cell Count 104
[2023-04-23] MEDS: Dextrose 5% in Water 1,000 ML IV SCH (11:10)
[2023-04-23] MEDS: Carvedilol 3.125 MG TAB PO SCH ×2 (11:12→16:27)
[2023-04-23] MEDS: Apixaban 5 MG TAB PO SCH ×2 (11:12→19:55)
[2023-04-23] MEDS: Aspirin 81 mg Enteric Coated Tablet PO SCH (11:12)
[2023-04-23] MEDS: Famotidine/PF 20 mg/2ml Vial SLOW IVP SCH (11:12)
[2023-04-23] MEDS: Empagliflozin 10 MG TAB PO SCH (11:12)
[2023-04-23] MEDS: Insulin NPH Human Isophane 100 UNITS/ML (10 ML VIAL) SC SCH ×2 (11:13→20:00)
[2023-04-23] MEDS: cefTRIAXone\\ROCEPHIN 2 GM in Sodium Chloride 0.9% 100 ML IVPB SCH (19:54)
[2023-04-23] MEDS: Atorvastatin Calcium 40 MG TAB PO SCH (19:55)
[2023-04-24 05:23] LABS: ALT (SGPT) 96 U/L (8-55); AST (SGOT) 35 U/L (5-34); Albumin 3.9 g/dL (3.4-4.8); Alkaline Phosphatase 96 U/L (40-110); Anion Gap 17 mmol/L (10-20); BUN (Urea Nitrogen) 14 mg/dL (9.8-20.1); Bilirubin, Total 3.3 mg/dL (0.2-1.2); Calc. Creatinine Clearance 58 mL/min (70-130); Calcium 9.4 mg/dL (7.8-10.44); Carbon Dioxide 24 mmol/L (23-31); Chloride 99 mmol/L (98-107); Estimated GFR 46; Globulin 2.9 g/dL (2.4-3.5); Glucose 79 mg/dL (80-115); Potassium 5.5 mmol/L (3.5-5.1); Protein, Total 6.8 g/dL (5.8-8.1); Sodium 134 mmol/L (136-145)
[2023-04-24 05:37] LABS: Hematocrit 31.6 % (36.0-47.0); Hemoglobin 9.9 g/dL (12.0-16.0); Mean Corpuscular HGB CONC 31.3 g/dL (32.0-36.0); Mean Corpuscular Volume 92.7 fl (78.0-98.0); Platelet Count 118 10x3/uL (130-400); RBC Distribution Width 22.6 % (11.5-14.5); Red Blood Cell (RBC) Count 3.41 mill/uL (4.20-5.40); White Blood Cell (WBC) Count 6.9 10x3/uL (4.8-10.8)
[2023-04-24 05:39] LABS: Delete Auto Diff?? YES; Manual Diff?? YES
[2023-04-24 06:03] LABS: Anisocytosis SLIGHT = 6-15 cells HPF (0-5); CellaVision Operator ID lab.abc; Lymphocytes 2 % (21-51); Monocytes 11 % (0-10); Neutrophil 86 % (42-75); Platelet Adequacy Comment Platelets Decreased; Total Cell Count 100
[2023-04-24] MEDS: Dextrose 5% in Water 1,000 ML IV SCH ×2 (06:19→21:00)
[2023-04-24] MEDS: Furosemide 40 MG/4 ML VIAL SLOW IVP SCH ×2 (06:19→14:37)
[2023-04-24] MEDS: Famotidine/PF 20 mg/2ml Vial SLOW IVP SCH (09:57)
[2023-04-24] MEDS: Aspirin 81 mg Enteric Coated Tablet PO SCH (09:58)
[2023-04-24] MEDS: Empagliflozin 10 MG TAB PO SCH (09:58)
[2023-04-24] MEDS: Carvedilol 3.125 MG TAB PO SCH ×2 (09:58→14:37)
[2023-04-24] MEDS: Insulin NPH Human Isophane 100 UNITS/ML (10 ML VIAL) SC SCH ×2 (09:58→21:00)
[2023-04-24] MEDS: Apixaban 5 MG TAB PO SCH ×2 (09:58→20:59)
[2023-04-24] MEDS: cefTRIAXone\\ROCEPHIN 2 GM in Sodium Chloride 0.9% 100 ML IVPB SCH (18:27)
[2023-04-24] MEDS: Atorvastatin Calcium 40 MG TAB PO SCH (21:00)
[2023-04-25 04:44] LABS: Anion Gap 16 mmol/L (10-20); BUN (Urea Nitrogen) 12 mg/dL (9.8-20.1); Calc. Creatinine Clearance 57 mL/min (70-130); Calcium 9.8 mg/dL (7.8-10.44); Carbon Dioxide 26 mmol/L (23-31); Chloride 99 mmol/L (98-107); Estimated GFR 45; Glucose 117 mg/dL (80-115); Potassium 4.5 mmol/L (3.5-5.1); Sodium 136 mmol/L (136-145)
[2023-04-25] MEDS: Furosemide 40 MG/4 ML VIAL SLOW IVP SCH ×2 (06:23→15:14)
[2023-04-25 08:08] LABS: Hematocrit 33.4 % (36.0-47.0); Hemoglobin 10.1 g/dL (12.0-16.0); Mean Corpuscular HGB CONC 30.2 g/dL (32.0-36.0); Mean Corpuscular Hemoglobin 29.2 pg (27.0-31.0); Mean Platelet Volume 11.7 fL (7.4-10.4); Platelet Count 122 10x3/uL (130-400); RBC Distribution Width 22.7 % (11.5-14.5); Red Blood Cell (RBC) Count 3.46 mill/uL (4.20-5.40)
[2023-04-25 08:14] LABS: Mean Corpuscular Volume 96.5 fl (78.0-98.0)
[2023-04-25] MEDS: Apixaban 5 MG TAB PO SCH ×2 (09:25→20:18)
[2023-04-25] MEDS: Carvedilol 3.125 MG TAB PO SCH ×2 (09:25→15:14)
[2023-04-25] MEDS: Aspirin 81 mg Enteric Coated Tablet PO SCH (09:25)
[2023-04-25] MEDS: Famotidine/PF 20 mg/2ml Vial SLOW IVP SCH (09:25)
[2023-04-25] MEDS: Empagliflozin 10 MG TAB PO SCH (09:25)
[2023-04-25] MEDS: Insulin NPH Human Isophane 100 UNITS/ML (10 ML VIAL) SC SCH ×2 (09:25→20:18)
[2023-04-25] MEDS ORDERED: Gabapentin 100 MG CAP PO SCH (18:15)
[2023-04-25] MEDS: cefTRIAXone\\ROCEPHIN 2 GM in Sodium Chloride 0.9% 100 ML IVPB SCH (18:16)
[2023-04-25] MEDS: Atorvastatin Calcium 40 MG TAB PO SCH (20:18)
[2023-04-25] MEDS: Dextrose 5% in Water 1,000 ML IV SCH (20:28)
[2023-04-26] MEDS: Furosemide 40 MG/4 ML VIAL SLOW IVP SCH (06:04)
[2023-04-26] MEDS: Gabapentin 100 MG CAP PO SCH (08:49)
[2023-04-26] MEDS: Carvedilol 3.125 MG TAB PO SCH ×2 (08:49→17:53)
[2023-04-26] MEDS: Aspirin 81 mg Enteric Coated Tablet PO SCH (08:50)
[2023-04-26] MEDS: Apixaban 5 MG TAB PO SCH ×2 (08:50→20:10)
[2023-04-26] MEDS: Empagliflozin 10 MG TAB PO SCH (08:50)
[2023-04-26] MEDS: Famotidine/PF 20 mg/2ml Vial SLOW IVP SCH (09:00)
[2023-04-26] MEDS: Insulin NPH Human Isophane 100 UNITS/ML (10 ML VIAL) SC SCH ×2 (09:01→20:10)
[2023-04-26] MEDS ORDERED: Polyethylene Glycol 3350 17 GM Packet PO PRN (12:56)
[2023-04-26] MEDS ORDERED: Docusate 100 MG CAP PO PRN (12:56)
[2023-04-26] MEDS: cefTRIAXone\\ROCEPHIN 2 GM in Sodium Chloride 0.9% 100 ML IVPB SCH (17:53)
[2023-04-26] MEDS: Dextrose 5% in Water 1,000 ML IV SCH (18:02)
[2023-04-26] MEDS: Sacubitril 24MG/Valsartan 26 MG TAB PO SCH (20:09)
[2023-04-26] MEDS: Atorvastatin Calcium 40 MG TAB PO SCH (20:09)
[2023-04-26] MEDS: HumaLOG 300 UNITS/3 ML VIAL SC PRN (23:17)
[2023-04-27 06:40] LABS: Hematocrit 32.2 % (36.0-47.0); Hemoglobin 9.9 g/dL (12.0-16.0); Mean Corpuscular HGB CONC 30.7 g/dL (32.0-36.0); Mean Corpuscular Hemoglobin 29.6 pg (27.0-31.0); Mean Corpuscular Volume 96.4 fl (78.0-98.0); Platelet Count 118 10x3/uL (130-400); RBC Distribution Width 22.4 % (11.5-14.5); Red Blood Cell (RBC) Count 3.34 mill/uL (4.20-5.40); White Blood Cell (WBC) Count 5.1 10x3/uL (4.8-10.8)
[2023-04-27 09:00] LABS: Anion Gap 16 mmol/L (10-20); BUN (Urea Nitrogen) 12 mg/dL (9.8-20.1); Calc. Creatinine Clearance 55 mL/min (70-130); Calcium 9.4 mg/dL (7.8-10.44); Carbon Dioxide 25 mmol/L (23-31); Chloride 100 mmol/L (98-107); Estimated GFR 44; Glucose 129 mg/dL (80-115); Potassium 5.6 mmol/L (3.5-5.1); Sodium 135 mmol/L (136-145)
[2023-04-27] MEDS ORDERED: Dextrose 50% Abboject 50 ML SYRINGE SLOW IVP SCH (09:27)
[2023-04-27] MEDS ORDERED: Insulin Regular 300 UNITS/3 ML VIAL IVP SCH (09:30)
[2023-04-27] MEDS: Famotidine/PF 20 mg/2ml Vial SLOW IVP SCH (10:48)
[2023-04-27] MEDS: Sacubitril 24MG/Valsartan 26 MG TAB PO SCH ×2 (10:49→22:15)
[2023-04-27] MEDS: Apixaban 5 MG TAB PO SCH ×2 (10:50→22:15)
[2023-04-27] MEDS: Gabapentin 100 MG CAP PO SCH (10:50)
[2023-04-27] MEDS: Furosemide 40 MG TAB PO SCH (10:50)
[2023-04-27] MEDS: Empagliflozin 10 MG TAB PO SCH (10:50)
[2023-04-27] MEDS: Carvedilol 3.125 MG TAB PO SCH ×2 (10:50→17:32)
[2023-04-27] MEDS: Aspirin 81 mg Enteric Coated Tablet PO SCH (10:50)
[2023-04-27] MEDS: Insulin NPH Human Isophane 100 UNITS/ML (10 ML VIAL) SC SCH ×2 (13:11→22:15)
[2023-04-27] MEDS: Dextrose 5% in Water 1,000 ML IV SCH (13:56)
[2023-04-27] MEDS: cefTRIAXone\\ROCEPHIN 2 GM in Sodium Chloride 0.9% 100 ML IVPB SCH (17:32)
[2023-04-27 18:36] LABS: Phosphorus 2.9 mg/dL (2.3-4.7)
[2023-04-27] MEDS: Atorvastatin Calcium 40 MG TAB PO SCH (22:15)
[2023-04-28 04:36] LABS: ALT (SGPT) 49 U/L (8-55); AST (SGOT) 21 U/L (5-34); Albumin 3.7 g/dL (3.4-4.8); Alkaline Phosphatase 94 U/L (40-110); Anion Gap 13 mmol/L (10-20); BUN (Urea Nitrogen) 11 mg/dL (9.8-20.1); Bilirubin, Total 2.7 mg/dL (0.2-1.2); Calc. Creatinine Clearance 57 mL/min (70-130); Calcium 9.6 mg/dL (7.8-10.44); Carbon Dioxide 30 mmol/L (23-31); Chloride 99 mmol/L (98-107); Estimated GFR 46; Globulin 2.7 g/dL (2.4-3.5); Glucose 98 mg/dL (80-115); Potassium 3.9 mmol/L (3.5-5.1); Protein, Total 6.4 g/dL (5.8-8.1); Sodium 138 mmol/L (136-145)
[2023-04-28 04:43] LABS: #Monocytes 0.7 thou/uL (0.11-0.59); %Basophils 0.2 % (0.0-1.0); %Eosinophils 0.2 % (0.0-10.0); %Lymphocytes 14.6 % (21.0-51.0); %Neutrophils 68.8 % (42.0-75.0); Hematocrit 34.2 % (36.0-47.0); Hemoglobin 10.5 g/dL (12.0-16.0); Mean Corpuscular HGB CONC 30.7 g/dL (32.0-36.0); Mean Corpuscular Volume 94.5 fl (78.0-98.0); Mean Platelet Volume 11.8 fL (7.4-10.4); RBC Distribution Width 21.8 % (11.5-14.5); Red Blood Cell (RBC) Count 3.62 mill/uL (4.20-5.40); White Blood Cell (WBC) Count 4.3 10x3/uL (4.8-10.8)
[2023-04-28 04:44] LABS: Platelet Count 116 10x3/uL (130-400)
[2023-04-28] MEDS: Carvedilol 3.125 MG TAB PO SCH ×2 (09:39→15:48)
[2023-04-28] MEDS: Aspirin 81 mg Enteric Coated Tablet PO SCH (09:39)
[2023-04-28] MEDS: Gabapentin 100 MG CAP PO SCH (09:39)
[2023-04-28] MEDS: Apixaban 5 MG TAB PO SCH ×2 (09:39→21:09)
[2023-04-28] MEDS: Sacubitril 24MG/Valsartan 26 MG TAB PO SCH ×2 (09:39→21:09)
[2023-04-28] MEDS: Famotidine/PF 20 mg/2ml Vial SLOW IVP SCH (09:40)
[2023-04-28] MEDS: Furosemide 40 MG TAB PO SCH (09:40)
[2023-04-28] MEDS: Empagliflozin 10 MG TAB PO SCH (09:40)
[2023-04-28] MEDS: Insulin NPH Human Isophane 100 UNITS/ML (10 ML VIAL) SC SCH ×2 (09:41→21:09)
[2023-04-28] MEDS: Dextrose 5% in Water 1,000 ML IV SCH (15:49)
[2023-04-28] MEDS: cefTRIAXone\\ROCEPHIN 2 GM in Sodium Chloride 0.9% 100 ML IVPB SCH (17:26)
[2023-04-28] MEDS: HumaLOG 300 UNITS/3 ML VIAL SC PRN (17:27)
[2023-04-28] MEDS: Atorvastatin Calcium 40 MG TAB PO SCH (21:09)
[2023-04-29] MEDS: Acetaminophen 500 MG TAB PO PRN ×2 (02:52→17:29)
[2023-04-29 05:28] LABS: ALT (SGPT) 44 U/L (8-55); AST (SGOT) 20 U/L (5-34); Albumin 3.6 g/dL (3.4-4.8); Alkaline Phosphatase 90 U/L (40-110); Anion Gap 16 mmol/L (10-20); BUN (Urea Nitrogen) 10 mg/dL (9.8-20.1); Bilirubin, Total 2.3 mg/dL (0.2-1.2); Calc. Creatinine Clearance 60 mL/min (70-130); Calcium 9.2 mg/dL (7.8-10.44); Carbon Dioxide 27 mmol/L (23-31); Chloride 100 mmol/L (98-107); Estimated GFR 48; Globulin 2.8 g/dL (2.4-3.5); Glucose 128 mg/dL (80-115); Potassium 4.5 mmol/L (3.5-5.1); Protein, Total 6.4 g/dL (5.8-8.1); Sodium 138 mmol/L (136-145)
[2023-04-29 05:43] LABS: #Monocytes 0.7 thou/uL (0.11-0.59); #Neutrophils 3.1 thou/uL (1.40-6.50); %Basophils 0.2 % (0.0-1.0); %Eosinophils 0.2 % (0.0-10.0); %Lymphocytes 14.2 % (21.0-51.0); %Monocytes 14.8 % (0.0-10.0); %Neutrophils 69.3 % (42.0-75.0); Hematocrit 34.1 % (36.0-47.0); Hemoglobin 10.4 g/dL (12.0-16.0); Mean Corpuscular HGB CONC 30.5 g/dL (32.0-36.0); Mean Corpuscular Hemoglobin 29.2 pg (27.0-31.0); Mean Corpuscular Volume 95.8 fl (78.0-98.0); Mean Platelet Volume 11.7 fL (7.4-10.4); Platelet Count 123 10x3/uL (130-400); RBC Distribution Width 21.5 % (11.5-14.5); Red Blood Cell (RBC) Count 3.56 mill/uL (4.20-5.40); White Blood Cell (WBC) Count 4.5 10x3/uL (4.8-10.8)
[2023-04-29] MEDS: Sacubitril 24MG/Valsartan 26 MG TAB PO SCH ×2 (08:51→20:43)
[2023-04-29] MEDS: Aspirin 81 mg Enteric Coated Tablet PO SCH (08:51)
[2023-04-29] MEDS: Empagliflozin 10 MG TAB PO SCH (08:53)
[2023-04-29] MEDS: Carvedilol 3.125 MG TAB PO SCH ×2 (08:53→17:30)
[2023-04-29] MEDS: Apixaban 5 MG TAB PO SCH ×2 (08:53→20:38)
[2023-04-29] MEDS: Furosemide 40 MG TAB PO SCH (08:53)
[2023-04-29] MEDS: Gabapentin 100 MG CAP PO SCH (08:54)
[2023-04-29] MEDS: Famotidine/PF 20 mg/2ml Vial SLOW IVP SCH (08:54)
[2023-04-29] MEDS: Insulin NPH Human Isophane 100 UNITS/ML (10 ML VIAL) SC SCH ×2 (08:55→22:16)
[2023-04-29] MEDS: Dextrose 5% in Water 1,000 ML IV SCH ×2 (17:29→22:21)
[2023-04-29] MEDS: cefTRIAXone\\ROCEPHIN 2 GM in Sodium Chloride 0.9% 100 ML IVPB SCH (17:30)
[2023-04-29] MEDS: Atorvastatin Calcium 40 MG TAB PO SCH (20:39)
[2023-04-30 05:26] LABS: #Monocytes 0.6 thou/uL (0.11-0.59); #Neutrophils 2.5 thou/uL (1.40-6.50); %Basophils 0.3 % (0.0-1.0); %Lymphocytes 17.2 % (21.0-51.0); %Monocytes 16.5 % (0.0-10.0); %Neutrophils 63.2 % (42.0-75.0); Hematocrit 34.3 % (36.0-47.0); Hemoglobin 10.4 g/dL (12.0-16.0); Mean Corpuscular HGB CONC 30.3 g/dL (32.0-36.0); Mean Corpuscular Hemoglobin 28.9 pg (27.0-31.0); Mean Corpuscular Volume 95.3 fl (78.0-98.0); Mean Platelet Volume 11.3 fL (7.4-10.4); Platelet Count 110 10x3/uL (130-400); RBC Distribution Width 21.4 % (11.5-14.5); White Blood Cell (WBC) Count 3.9 10x3/uL (4.8-10.8)
[2023-04-30 05:36] LABS: ALT (SGPT) 36 U/L (8-55); AST (SGOT) 20 U/L (5-34); Albumin 3.6 g/dL (3.4-4.8); Alkaline Phosphatase 90 U/L (40-110); Anion Gap 13 mmol/L (10-20); BUN (Urea Nitrogen) 11 mg/dL (9.8-20.1); Bilirubin, Total 2.3 mg/dL (0.2-1.2); Calc. Creatinine Clearance 54 mL/min (70-130); Calcium 9.3 mg/dL (7.8-10.44); Carbon Dioxide 29 mmol/L (23-31); Chloride 102 mmol/L (98-107); Estimated GFR 45; Globulin 2.6 g/dL (2.4-3.5); Protein, Total 6.2 g/dL (5.8-8.1); Sodium 140 mmol/L (136-145)
[2023-04-30 05:42] LABS: Glucose 51 mg/dL (80-115)
[2023-04-30] MEDS: Sacubitril 24MG/Valsartan 26 MG TAB PO SCH ×2 (09:05→20:15)
[2023-04-30] MEDS: Famotidine/PF 20 mg/2ml Vial SLOW IVP SCH (09:05)
[2023-04-30] MEDS: Apixaban 5 MG TAB PO SCH ×2 (09:06→20:15)
[2023-04-30] MEDS: Insulin NPH Human Isophane 100 UNITS/ML (10 ML VIAL) SC SCH (09:06)
[2023-04-30] MEDS: Empagliflozin 10 MG TAB PO SCH (09:06)
[2023-04-30] MEDS: Aspirin 81 mg Enteric Coated Tablet PO SCH (09:06)
[2023-04-30] MEDS: Furosemide 40 MG TAB PO SCH (09:06)
[2023-04-30] MEDS: Gabapentin 100 MG CAP PO SCH (09:06)
[2023-04-30] MEDS: Carvedilol 3.125 MG TAB PO SCH ×2 (09:06→18:19)
[2023-04-30] MEDS: Dextrose 5% in Water 1,000 ML IV SCH (13:52)
[2023-04-30] MEDS: cefTRIAXone\\ROCEPHIN 2 GM in Sodium Chloride 0.9% 100 ML IVPB SCH (18:19)
[2023-04-30] MEDS: Acetaminophen 500 MG TAB PO PRN (20:14)
[2023-04-30] MEDS: Atorvastatin Calcium 40 MG TAB PO SCH (20:15)
[2023-04-30] MEDS: HumaLOG 300 UNITS/3 ML VIAL SC PRN (22:07)
[2023-05-01 05:52] LABS: #Monocytes 0.5 thou/uL (0.11-0.59); #Neutrophils 2.2 thou/uL (1.40-6.50); %Basophils 0.3 % (0.0-1.0); %Eosinophils 0.3 % (0.0-10.0); %Lymphocytes 19.4 % (21.0-51.0); %Monocytes 14.8 % (0.0-10.0); %Neutrophils 63.8 % (42.0-75.0); Hematocrit 35.7 % (36.0-47.0); Hemoglobin 10.8 g/dL (12.0-16.0); Mean Corpuscular HGB CONC 30.3 g/dL (32.0-36.0); Mean Corpuscular Hemoglobin 28.7 pg (27.0-31.0); Mean Corpuscular Volume 94.9 fl (78.0-98.0); Platelet Count 117 10x3/uL (130-400); RBC Distribution Width 22.2 % (11.5-14.5); Red Blood Cell (RBC) Count 3.76 mill/uL (4.20-5.40); White Blood Cell (WBC) Count 3.5 10x3/uL (4.8-10.8)
[2023-05-01 07:43] LABS: Albumin 4.2 g/dL (3.4-4.8)
[2023-05-01 07:44] LABS: Chloride 100 mmol/L (98-107); Potassium 3.2 mmol/L (3.5-5.1); Sodium 139 mmol/L (136-145)
[2023-05-01 07:45] LABS: Calcium 10.1 mg/dL (7.8-10.44); Glucose 180 mg/dL (80-115)
[2023-05-01 07:46] LABS: Globulin 2.8 g/dL (2.4-3.5)
[2023-05-01 07:47] LABS: Anion Gap 13 mmol/L (10-20); Bilirubin, Total 2.7 mg/dL (0.2-1.2); Carbon Dioxide 29 mmol/L (23-31)
[2023-05-01 07:48] LABS: Alkaline Phosphatase 108 U/L (40-110)
[2023-05-01 07:49] LABS: Calc. Creatinine Clearance 50 mL/min (70-130); Estimated GFR 39
[2023-05-01 07:50] LABS: BUN (Urea Nitrogen) 11 mg/dL (9.8-20.1)
[2023-05-01 07:51] LABS: ALT (SGPT) 35 U/L (8-55); AST (SGOT) 18 U/L (5-34)
[2023-05-01] MEDS: Aspirin 81 mg Enteric Coated Tablet PO SCH (08:35)
[2023-05-01] MEDS: Spironolactone 25 MG TAB PO SCH (08:35)
[2023-05-01] MEDS: Empagliflozin 10 MG TAB PO SCH (08:36)
[2023-05-01] MEDS: Furosemide 40 MG TAB PO SCH (08:36)
[2023-05-01] MEDS: Sacubitril 24MG/Valsartan 26 MG TAB PO SCH ×2 (08:36→20:03)
[2023-05-01] MEDS: Apixaban 5 MG TAB PO SCH ×2 (08:36→20:03)
[2023-05-01] MEDS: Gabapentin 100 MG CAP PO SCH (08:36)
[2023-05-01] MEDS: Carvedilol 3.125 MG TAB PO SCH ×2 (08:36→17:42)
[2023-05-01] MEDS: Famotidine/PF 20 mg/2ml Vial SLOW IVP SCH (08:41)
[2023-05-01] MEDS ORDERED: Potassium Chloride 20 MEQ TAB PO SCH (09:45)
[2023-05-01] MEDS: Magnesium Oxide 400 MG TAB PO SCH (10:30)
[2023-05-01] MEDS: HumaLOG 300 UNITS/3 ML VIAL SC PRN ×3 (13:26→22:21)
[2023-05-01] MEDS: Dextrose 5% in Water 1,000 ML IV SCH (13:32)
[2023-05-01] MEDS: cefTRIAXone\\ROCEPHIN 2 GM in Sodium Chloride 0.9% 100 ML IVPB SCH (17:45)
[2023-05-01] MEDS: Acetaminophen 500 MG TAB PO PRN (20:02)
[2023-05-01] MEDS: Atorvastatin Calcium 40 MG TAB PO SCH (20:03)
[2023-05-02 00:28] LABS: Hematocrit 28.8 % (36.0-47.0); Hemoglobin 10.2 g/dL (12.0-16.0); Platelet Count 96 10x3/uL (130-400)
[2023-05-02 00:45] LABS: INR-International Normal Ratio 2.3; Prothrombin Time 26.5 sec (12.0-14.7)
[2023-05-02 00:46] LABS: PTT 47.5 sec (22.9-36.1)
[2023-05-02 06:56] LABS: #Monocytes 0.6 thou/uL (0.11-0.59); #Neutrophils 2.4 thou/uL (1.40-6.50); %Basophils 0.3 % (0.0-1.0); %Lymphocytes 18.9 % (21.0-51.0); %Monocytes 14.6 % (0.0-10.0); Hematocrit 35.3 % (36.0-47.0); Hemoglobin 10.6 g/dL (12.0-16.0); Mean Corpuscular Hemoglobin 28.8 pg (27.0-31.0); Mean Corpuscular Volume 95.9 fl (78.0-98.0); RBC Distribution Width 22.2 % (11.5-14.5); Red Blood Cell (RBC) Count 3.68 mill/uL (4.20-5.40); White Blood Cell (WBC) Count 3.8 10x3/uL (4.8-10.8)
[2023-05-02 06:57] LABS: Platelet Count 88 10x3/uL (130-400)
[2023-05-02] MEDS: Famotidine/PF 20 mg/2ml Vial SLOW IVP SCH (09:48)
[2023-05-02] MEDS: Aspirin 81 mg Enteric Coated Tablet PO SCH (09:49)
[2023-05-02] MEDS: Empagliflozin 10 MG TAB PO SCH (09:49)
[2023-05-02] MEDS: Carvedilol 3.125 MG TAB PO SCH ×2 (09:49→17:59)
[2023-05-02] MEDS: Furosemide 40 MG TAB PO SCH (09:49)
[2023-05-02] MEDS: Magnesium Oxide 400 MG TAB PO SCH (09:49)
[2023-05-02] MEDS: Gabapentin 100 MG CAP PO SCH (09:49)
[2023-05-02] MEDS: Sacubitril 24MG/Valsartan 26 MG TAB PO SCH ×2 (09:49→20:04)
[2023-05-02] MEDS: Spironolactone 25 MG TAB PO SCH (09:50)
[2023-05-02] MEDS: Dextrose 5% in Water 1,000 ML IV SCH (10:03)
[2023-05-02] MEDS: Apixaban 5 MG TAB PO SCH ×2 (10:03→20:04)
[2023-05-02 11:22] LABS: ALT (SGPT) 33 U/L (8-55); AST (SGOT) 19 U/L (5-34); Albumin 4.2 g/dL (3.4-4.8); Alkaline Phosphatase 103 U/L (40-110); Anion Gap 19 mmol/L (10-20); BUN (Urea Nitrogen) 10 mg/dL (9.8-20.1); Bilirubin, Total 2.7 mg/dL (0.2-1.2); Calc. Creatinine Clearance 51 mL/min (70-130); Calcium 9.9 mg/dL (7.8-10.44); Carbon Dioxide 24 mmol/L (23-31); Chloride 100 mmol/L (98-107); Estimated GFR 42; Glucose 221 mg/dL (80-115); Protein, Total 7.2 g/dL (5.8-8.1); Sodium 138 mmol/L (136-145)
[2023-05-02] MEDS: HumaLOG 300 UNITS/3 ML VIAL SC PRN ×2 (12:42→18:00)
[2023-05-02] MEDS: cefTRIAXone\\ROCEPHIN 2 GM in Sodium Chloride 0.9% 100 ML IVPB SCH (17:59)
[2023-05-02] MEDS: Atorvastatin Calcium 40 MG TAB PO SCH (20:04)
[2023-05-02] MEDS ORDERED: Sildenafil Citrate 20 MG TAB PO SCH (22:00)
[2023-05-03] MEDS: Dextrose 5% in Water 1,000 ML IV SCH ×2 (05:46→09:36)
[2023-05-03 06:11] LABS: #Monocytes 0.5 thou/uL (0.11-0.59); #Neutrophils 2.1 thou/uL (1.40-6.50); %Basophils 0.3 % (0.0-1.0); %Lymphocytes 20.3 % (21.0-51.0); %Monocytes 14.8 % (0.0-10.0); Hematocrit 33.7 % (36.0-47.0); Hemoglobin 10.2 g/dL (12.0-16.0); Mean Corpuscular HGB CONC 30.3 g/dL (32.0-36.0); Mean Corpuscular Volume 95.7 fl (78.0-98.0); Red Blood Cell (RBC) Count 3.52 mill/uL (4.20-5.40); White Blood Cell (WBC) Count 3.4 10x3/uL (4.8-10.8)
[2023-05-03 06:15] LABS: Platelet Count 84 10x3/uL (130-400)
[2023-05-03] MEDS: HumaLOG 300 UNITS/3 ML VIAL SC PRN ×3 (06:19→18:10)
[2023-05-03 07:22] LABS: ALT (SGPT) 26 U/L (8-55); AST (SGOT) 15 U/L (5-34); Albumin 4.1 g/dL (3.4-4.8); Alkaline Phosphatase 94 U/L (40-110); Anion Gap 13 mmol/L (10-20); BUN (Urea Nitrogen) 11 mg/dL (9.8-20.1); Bilirubin, Total 2.5 mg/dL (0.2-1.2); Calc. Creatinine Clearance 47 mL/min (70-130); Calcium 9.7 mg/dL (7.8-10.44); Carbon Dioxide 29 mmol/L (23-31); Chloride 101 mmol/L (98-107); Estimated GFR 38; Globulin 2.6 g/dL (2.4-3.5); Glucose 187 mg/dL (80-115); Potassium 3.9 mmol/L (3.5-5.1); Protein, Total 6.7 g/dL (5.8-8.1); Sodium 139 mmol/L (136-145)
[2023-05-03] MEDS: Furosemide 40 MG TAB PO SCH (09:24)
[2023-05-03] MEDS: Spironolactone 25 MG TAB PO SCH (09:24)
[2023-05-03] MEDS: Carvedilol 3.125 MG TAB PO SCH ×2 (09:25→17:08)
[2023-05-03] MEDS: Aspirin 81 mg Enteric Coated Tablet PO SCH (09:25)
[2023-05-03] MEDS: Sacubitril 24MG/Valsartan 26 MG TAB PO SCH ×2 (09:25→20:15)
[2023-05-03] MEDS: Magnesium Oxide 400 MG TAB PO SCH (09:26)
[2023-05-03] MEDS: Empagliflozin 10 MG TAB PO SCH (09:26)
[2023-05-03] MEDS: Gabapentin 100 MG CAP PO SCH (09:26)
[2023-05-03] MEDS: Apixaban 5 MG TAB PO SCH ×2 (09:27→20:31)
[2023-05-03] MEDS: Famotidine/PF 20 mg/2ml Vial SLOW IVP SCH (09:28)
[2023-05-03] MEDS: Sildenafil Citrate 20 MG TAB PO SCH ×2 (09:30→17:07)
[2023-05-03] MEDS: Acetaminophen 500 MG TAB PO PRN (12:25)
[2023-05-03] MEDS: cefTRIAXone\\ROCEPHIN 2 GM in Sodium Chloride 0.9% 100 ML IVPB SCH (17:07)
[2023-05-03 19:42] LABS: Bacteria/HPF 2+ HPF (None Seen); Bilirubin Negative (Negative); Blood, Urine 3+ (Negative); CAUTI Indications for Culture Acute Hematuria; Clarity Turbid (Clear); Glucose, Urine (Dipstick) Greater than 1000 mg/dL (Negative); Ketone, Urine Negative (Negative); Leukocyte Negative Leu/uL (Negative); Nitrite Negative (Negative); Protein, Urine (Dipstick) 50 mg/dL (Neg-Trace); RBC/HPF Greater than 50 HPF (0-3); Specific Gravity, Urine 1.021 (1.002-1.036); Squamous Epithelial 0-3 HPF (0-3); Urobilinogen Normal mg/dL (Less than 2); WBC/HPF 0-3 HPF (0-3); Yeast-Budding Rare HPF (None Seen)
[2023-05-03 19:44] LABS: Urine Culture Reflex No No
[2023-05-03] MEDS: Atorvastatin Calcium 40 MG TAB PO SCH (20:31)
[2023-05-04] MEDS: Sildenafil Citrate 20 MG TAB PO SCH ×3 (01:56→18:02)
[2023-05-04 05:15] LABS: ALT (SGPT) 25 U/L (8-55); AST (SGOT) 16 U/L (5-34); Albumin 3.7 g/dL (3.4-4.8); Alkaline Phosphatase 87 U/L (40-110); Anion Gap 18 mmol/L (10-20); BUN (Urea Nitrogen) 13 mg/dL (9.8-20.1); Bilirubin, Total 2.1 mg/dL (0.2-1.2); Calc. Creatinine Clearance 43 mL/min (70-130); Calcium 9.6 mg/dL (7.8-10.44); Carbon Dioxide 26 mmol/L (23-31); Chloride 101 mmol/L (98-107); Estimated GFR 34; Globulin 2.7 g/dL (2.4-3.5); Glucose 262 mg/dL (80-115); Potassium 4.8 mmol/L (3.5-5.1); Protein, Total 6.4 g/dL (5.8-8.1); Sodium 140 mmol/L (136-145)
[2023-05-04 05:30] LABS: Hematocrit 32.1 % (36.0-47.0); Hemoglobin 9.8 g/dL (12.0-16.0); Mean Corpuscular HGB CONC 30.5 g/dL (32.0-36.0); Mean Corpuscular Hemoglobin 29.3 pg (27.0-31.0); Mean Corpuscular Volume 96.1 fl (78.0-98.0); RBC Distribution Width 21.3 % (11.5-14.5); Red Blood Cell (RBC) Count 3.34 mill/uL (4.20-5.40); White Blood Cell (WBC) Count 3.7 10x3/uL (4.8-10.8)
[2023-05-04 05:31] LABS: Delete Auto Diff?? YES; Manual Diff?? YES; Platelet Count 73 10x3/uL (130-400)
[2023-05-04] MEDS: HumaLOG 300 UNITS/3 ML VIAL SC PRN ×4 (06:25→21:47)
[2023-05-04 06:36] LABS: Anisocytosis MODERATE=16-30 cells HPF (0-5); Burr Cells SLIGHT = 2-5 cells HPF (0-1); CellaVision Operator ID lab.sh2; Hypochromia SLIGHT = 6-15 cells HPF (0-5); Lymphocytes 23 % (21-51); Macrocytosis MODERATE=16-30 cells HPF (0-5); Monocytes 5 % (0-10); Neutrophil 72 % (42-75); Ovalocytes SLIGHT = 2-5 cells HPF (0-1); Platelet Adequacy Comment Platelets Decreased; Poikilocytosis SLIGHT = 6-15 cells HPF (0-5); Polychromasia SLIGHT = 2-3 cells HPF (0-2); Smudge Cells 11.9 %; Total Cell Count 101
[2023-05-04] MEDS: Sacubitril 24MG/Valsartan 26 MG TAB PO SCH ×2 (08:54→21:40)
[2023-05-04] MEDS: Gabapentin 100 MG CAP PO SCH (08:55)
[2023-05-04] MEDS: Apixaban 5 MG TAB PO SCH ×2 (08:55→21:40)
[2023-05-04] MEDS: Spironolactone 25 MG TAB PO SCH (08:55)
[2023-05-04] MEDS: Furosemide 40 MG TAB PO SCH (08:55)
[2023-05-04] MEDS: Aspirin 81 mg Enteric Coated Tablet PO SCH (08:55)
[2023-05-04] MEDS: Famotidine/PF 20 mg/2ml Vial SLOW IVP SCH (08:55)
[2023-05-04] MEDS: Empagliflozin 10 MG TAB PO SCH (08:56)
[2023-05-04] MEDS: Carvedilol 3.125 MG TAB PO SCH ×2 (08:56→18:04)
[2023-05-04] MEDS: Magnesium Oxide 400 MG TAB PO SCH (08:57)
[2023-05-04] MEDS: Dextrose 5% in Water 1,000 ML IV SCH (10:18)
[2023-05-04] MEDS: cefTRIAXone\\ROCEPHIN 2 GM in Sodium Chloride 0.9% 100 ML IVPB SCH (18:03)
[2023-05-04] MEDS: Acetaminophen 500 MG TAB PO PRN (21:36)
[2023-05-04] MEDS: Atorvastatin Calcium 40 MG TAB PO SCH (21:41)
[2023-05-04] MEDS: Escitalopram Oxalate 10 mg Tablet PO SCH (21:41)
[2023-05-05] MEDS: Sildenafil Citrate 20 MG TAB PO SCH ×3 (01:04→20:58)
[2023-05-05 05:22] LABS: ALT (SGPT) 19 U/L (8-55); AST (SGOT) 13 U/L (5-34); Albumin 3.8 g/dL (3.4-4.8); Alkaline Phosphatase 86 U/L (40-110); Anion Gap 15 mmol/L (10-20); BUN (Urea Nitrogen) 12 mg/dL (9.8-20.1); Bilirubin, Total 2.1 mg/dL (0.2-1.2); Calc. Creatinine Clearance 44 mL/min (70-130); Calcium 9.3 mg/dL (7.8-10.44); Carbon Dioxide 25 mmol/L (23-31); Chloride 102 mmol/L (98-107); Estimated GFR 36; Globulin 2.5 g/dL (2.4-3.5); Glucose 225 mg/dL (80-115); Protein, Total 6.3 g/dL (5.8-8.1); Sodium 138 mmol/L (136-145)
[2023-05-05 05:29] LABS: #Monocytes 0.4 thou/uL (0.11-0.59); %Basophils 0.3 % (0.0-1.0); %Eosinophils 0.6 % (0.0-10.0); %Lymphocytes 19.9 % (21.0-51.0); %Monocytes 12.2 % (0.0-10.0); %Neutrophils 64.4 % (42.0-75.0); Hematocrit 31.9 % (36.0-47.0); Hemoglobin 9.7 g/dL (12.0-16.0); Mean Corpuscular HGB CONC 30.4 g/dL (32.0-36.0); Mean Corpuscular Volume 95.5 fl (78.0-98.0); RBC Distribution Width 21.2 % (11.5-14.5); Red Blood Cell (RBC) Count 3.34 mill/uL (4.20-5.40); White Blood Cell (WBC) Count 3.1 10x3/uL (4.8-10.8)
[2023-05-05 05:30] LABS: Platelet Count 66 10x3/uL (130-400)
[2023-05-05] MEDS: HumaLOG 300 UNITS/3 ML VIAL SC PRN ×3 (06:07→18:10)
[2023-05-05] MEDS ORDERED: Sildenafil Citrate 20 MG TAB PO SCH (09:00)
[2023-05-05] MEDS: Furosemide 40 MG TAB PO SCH (09:37)
[2023-05-05] MEDS: Apixaban 5 MG TAB PO SCH ×2 (09:37→20:58)
[2023-05-05] MEDS: Aspirin 81 mg Enteric Coated Tablet PO SCH (09:38)
[2023-05-05] MEDS: Carvedilol 3.125 MG TAB PO SCH ×2 (09:38→16:31)
[2023-05-05] MEDS: Spironolactone 25 MG TAB PO SCH (09:38)
[2023-05-05] MEDS: Famotidine/PF 20 mg/2ml Vial SLOW IVP SCH (09:39)
[2023-05-05] MEDS: Sacubitril 24MG/Valsartan 26 MG TAB PO SCH ×2 (09:39→21:00)
[2023-05-05] MEDS: Gabapentin 100 MG CAP PO SCH (09:39)
[2023-05-05] MEDS: Magnesium Oxide 400 MG TAB PO SCH (09:39)
[2023-05-05] MEDS: Empagliflozin 10 MG TAB PO SCH (09:40)
[2023-05-05] MEDS: Acetaminophen 500 MG TAB PO PRN (09:47)
[2023-05-05] MEDS: Insulin NPH Human Isophane 100 UNITS/ML (10 ML VIAL) SC SCH ×2 (09:50→21:03)
[2023-05-05 12:13] VITALS: BMI 27.4
[2023-05-05] MEDS: Atorvastatin Calcium 40 MG TAB PO SCH (20:58)
[2023-05-05] MEDS: Escitalopram Oxalate 10 mg Tablet PO SCH (21:00)
[2023-05-05] MEDS ORDERED: Melatonin 3 MG TAB PO PRN (21:48)
[2023-05-06 05:07] LABS: ALT (SGPT) 19 U/L (8-55); AST (SGOT) 15 U/L (5-34); Albumin 3.6 g/dL (3.4-4.8); Alkaline Phosphatase 83 U/L (40-110); Anion Gap 17 mmol/L (10-20); BUN (Urea Nitrogen) 12 mg/dL (9.8-20.1); Bilirubin, Total 2.4 mg/dL (0.2-1.2); Calc. Creatinine Clearance 49 mL/min (70-130); Calcium 9.5 mg/dL (7.8-10.44); Carbon Dioxide 26 mmol/L (23-31); Chloride 101 mmol/L (98-107); Estimated GFR 40; Globulin 2.7 g/dL (2.4-3.5); Glucose 81 mg/dL (80-115); Potassium 4.9 mmol/L (3.5-5.1); Protein, Total 6.3 g/dL (5.8-8.1); Sodium 139 mmol/L (136-145)
[2023-05-06] MEDS: Sildenafil Citrate 20 MG TAB PO SCH ×2 (05:46→13:56)
[2023-05-06 08:13] LABS: #Monocytes 0.3 thou/uL (0.11-0.59); #Neutrophils 1.6 thou/uL (1.40-6.50); %Basophils 0.4 % (0.0-1.0); %Eosinophils 0.4 % (0.0-10.0); %Lymphocytes 24.8 % (21.0-51.0); %Neutrophils 58.4 % (42.0-75.0); Hemoglobin 9.6 g/dL (12.0-16.0); Mean Corpuscular Hemoglobin 29.6 pg (27.0-31.0); Mean Corpuscular Volume 95.7 fl (78.0-98.0); RBC Distribution Width 21.2 % (11.5-14.5); Red Blood Cell (RBC) Count 3.24 mill/uL (4.20-5.40); White Blood Cell (WBC) Count 2.7 10x3/uL (4.8-10.8)
[2023-05-06 08:17] LABS: Platelet Count 62 10x3/uL (130-400)
[2023-05-06] MEDS: Furosemide 40 MG TAB PO SCH (09:32)
[2023-05-06] MEDS: Aspirin 81 mg Enteric Coated Tablet PO SCH (09:33)
[2023-05-06] MEDS: Spironolactone 25 MG TAB PO SCH (09:33)
[2023-05-06] MEDS: Carvedilol 3.125 MG TAB PO SCH ×2 (09:33→17:29)
[2023-05-06] MEDS: Empagliflozin 10 MG TAB PO SCH (09:33)
[2023-05-06] MEDS: Apixaban 5 MG TAB PO SCH (09:33)
[2023-05-06] MEDS: Famotidine/PF 20 mg/2ml Vial SLOW IVP SCH (09:34)
[2023-05-06] MEDS: Gabapentin 100 MG CAP PO SCH (09:34)
[2023-05-06] MEDS: Sacubitril 24MG/Valsartan 26 MG TAB PO SCH (09:35)
[2023-05-06] MEDS: Magnesium Oxide 400 MG TAB PO SCH (09:35)
[2023-05-06] MEDS: Acetaminophen 500 MG TAB PO PRN (09:41)
[2023-05-06] MEDS: Insulin NPH Human Isophane 100 UNITS/ML (10 ML VIAL) SC SCH (09:42)
[2023-05-06 16:24] VITALS: BP 119/59; TEMP 98.3
== END 2023-05-06 19:39 | disposition home or self-care (01) | DRG 870 ==
LOC: ERS 00:37 → CCU 02:57 → 2NO 04-18 23:31
PROVIDERS: ADMIT Student in an Organized Health Care Education/Training Program; ATTEND Family Medicine
PROC: 0T9B70Z Drainage of Bladder with Drainage Device, Via Natural or Artificial Opening (ICD-10-PCS; principal; 2023-04-11)
PROC: 5A1955Z Respiratory Ventilation, Greater than 96 Consecutive Hours (ICD-10-PCS; 2023-04-11)
PROC: 02HV33Z Insertion of Infusion Device into Superior Vena Cava, Percutaneous Approach (ICD-10-PCS; 2023-04-11)
PROC: 0DH67UZ Insertion of Feeding Device into Stomach, Via Natural or Artificial Opening (ICD-10-PCS; 2023-04-11)
PROC: 0BH17EZ Insertion of Endotracheal Airway into Trachea, Via Natural or Artificial Opening (ICD-10-PCS; 2023-04-11)
PROC: 03HY32Z Insertion of Monitoring Device into Upper Artery, Percutaneous Approach (ICD-10-PCS; 2023-04-11)
PROC: 4A133B1 Monitoring of Arterial Pressure, Peripheral, Percutaneous Approach (ICD-10-PCS; 2023-04-11)
PROC: 4A133J1 Monitoring of Arterial Pulse, Peripheral, Percutaneous Approach (ICD-10-PCS; 2023-04-11)
PROC: 4A133R1 Monitoring of Arterial Saturation, Peripheral, Percutaneous Approach (ICD-10-PCS; 2023-04-11)
PROC: 3E04329 Introduction of Other Anti-infective into Central Vein, Percutaneous Approach (ICD-10-PCS; 2023-04-11)
PROC: 3E043XZ Introduction of Vasopressor into Central Vein, Percutaneous Approach (ICD-10-PCS; 2023-04-11)
PROC: 06HY33Z Insertion of Infusion Device into Lower Vein, Percutaneous Approach (ICD-10-PCS; 2023-04-12)
PROC: 30243J1 Transfusion of Nonautologous Serum Albumin into Central Vein, Percutaneous Approach (ICD-10-PCS; 2023-04-16)
DX: A41.3 Sepsis due to Hemophilus influenzae (principal); G93.41 Metabolic encephalopathy; I46.9 Cardiac arrest, cause unspecified; K72.00 Acute and subacute hepatic failure without coma; J96.01 Acute respiratory failure with hypoxia; R65.21 Severe sepsis with septic shock; I50.43 Acute on chronic combined systolic (congestive) and diastolic (congestive) heart failure; N17.0 Acute kidney failure with tubular necrosis; I21.4 Non-ST elevation (NSTEMI) myocardial infarction; Z66 Do not resuscitate; Z51.5 Encounter for palliative care; J93.9 Pneumothorax, unspecified; E87.20 Acidosis, unspecified; D68.9 Coagulation defect, unspecified; I13.0 Hypertensive heart and chronic kidney disease with heart failure and stage 1 through stage 4 chronic kidney disease, or unspecified chronic kidney disease; I48.19 Other persistent atrial fibrillation; E87.1 Hypo-osmolality and hyponatremia; Z90.710 Acquired absence of both cervix and uterus; Z98.890 Other specified postprocedural states; Z88.8 Allergy status to other drugs, medicaments and biological substances; Z95.810 Presence of automatic (implantable) cardiac defibrillator; E78.5 Hyperlipidemia, unspecified; K21.9 Gastro-esophageal reflux disease without esophagitis; Z95.1 Presence of aortocoronary bypass graft; K80.20 Calculus of gallbladder without cholecystitis without obstruction; K74.60 Unspecified cirrhosis of liver; K57.90 Diverticulosis of intestine, part unspecified, without perforation or abscess without bleeding; I25.10 Atherosclerotic heart disease of native coronary artery without angina pectoris; E11.22 Type 2 diabetes mellitus with diabetic chronic kidney disease; D63.1 Anemia in chronic kidney disease; E66.9 Obesity, unspecified; D69.6 Thrombocytopenia, unspecified; Z79.899 Other long term (current) drug therapy; E87.6 Hypokalemia; Z86.73 Personal history of transient ischemic attack (TIA), and cerebral infarction without residual deficits; Z79.4 Long term (current) use of insulin; E87.5 Hyperkalemia; N18.30 Chronic kidney disease, stage 3 unspecified; I25.5 Ischemic cardiomyopathy; E11.649 Type 2 diabetes mellitus with hypoglycemia without coma; Z11.52 Encounter for screening for COVID-19
CPT/HCPCS: 31500; 36415; 36416; 36556; 51702; 70450; 71045; 71250; 74177; 74230; 76705; 76770; 80048; 80053; 80074; 80076; 81001; 82010; 82805; 83605; 83690; 83735; 83880; 83930; 84100; 84145; 84484; 85014; 85018; 85025; 85027; 85049; 85384; 85610; 85730; 86704; 86706; 87040; 87077; 87086; 87149; 90935; 93005; 93010; 93306; 94002; 94003; 96365; 96366; 96368; 96374; 96375; 97139; 99292; G0257; J0692; J0696; J1250; J1642; J1644; J1815; J1940; J1956; J2060; J2354; J3010; J3370; J3370-JW; J3430; J3480; J3490; J7050; J7070; J7168; J7999; P9047; S0028